=== PATIENT | male | born 1945 | race Caucasian/White ===

== ENCOUNTER → 2018-07-31 09:55 | Outpatient (CLI) | payer MEDICARE, OTHER, SELFPAY ==
--- NOTE | 2018-07-31 | DI.MRI.S_ITS ---
PROCEDURE: MR KNEE LT WO CON INDICATIONS: LEFT KNEE ARTHRITIS, PAIN TECHNIQUE: Noncontrast sagittal PD fast spin echo and T2 fast spin echo with fat saturation, sagittal 3-D FLASH with fat saturation; coronal T1 spin echo and PD fast spin echo with fat saturation, and axial PD fast spin echo with fat saturation through the knee. COMPARISON: [facility] Outside Film, CR, XR KNEE 3 VIEWS LEFT, 10/13/2017, 10:37. FINDINGS: Image quality: Excellent. Menisci: There is medial extrusion of the medial meniscus. Linear and amorphous high signal intensity traverse the posterior horn and body of the medial meniscus, demonstrating superior and inferior articular surface extension, indicating complex tearing. There is degenerative fraying of the free edge of the lateral meniscal body. Cruciate ligaments: The anterior and posterior cruciate ligaments appear intact. Medial structures: The medial collateral ligament appears intact. Visualized portions of the pes anserinus tendons appear normal. No abnormal bursal fluid. Multiple ganglion cysts at the posterior aspect of the medial compartment are present, spanning roughly 27 mm transverse by 27 mm craniocaudal by 12 mm anteroposterior. There is mild T2 signal elevation at the tibial insertion of the semimembranosus. Lateral structures: The lateral collateral ligament, long and short heads of the biceps femoris tendon appear intact. The popliteus tendon appears normal. Iliotibial band appears normal. Anterior structures: The quadriceps and patellar tendons appear intact. Patellar alignment is normal. No femoral trochlear dysplasia or ventral trochlear prominence. No edema in the infrapatellar fat pad. Bones and cartilage: There is moderate tricompartmental periarticular osteophyte formation. There is moderate ill-defined T2 signal lesion within the central and medial tibial plateau, compatible with degenerative marrow edema. Severe diffuse articular cartilage loss overlies the patellar apex and medial patellar facet. Severe diffuse articular cartilage loss overlies the weightbearing aspects of the medial femoral condyle and medial tibial plateau. Mild diffuse articular cartilage loss overlies the weightbearing aspects of the lateral femoral condyle and lateral tibial plateau. There is superimposed moderate grade articular cartilage loss overlying the posterior weightbearing aspect of the lateral femoral condyle, measuring roughly 17 mm anteroposterior. Moderate articular cartilage loss overlies the posterior weightbearing aspect of the lateral tibial plateau. Joint space: There is a small knee joint effusion. No Krishnan's cyst. Normal appearing synovial plicae are incidentally noted. IMPRESSION: 1. Medial and lateral meniscal tearing. 2. Tricompartmental osteoarthritis with associated articular cartilage loss as above. 3. Ganglion cysts at the posterior aspect of the medial compartment. 4. Small knee joint effusion. 5. Insertional tendinitis of the semimembranosus. Dictated by: Radha Humphries M.D. on 07/31/2018 at 12:10 Approved by: Radha Humphries M.D. on 07/31/2018 at 12:15
== END ==
PROVIDERS: Visit Provider Orthopaedic Surgery
DX: M17.12 Unilateral primary osteoarthritis, left knee (principal); M25.562 Pain in left knee; S83.232A Complex tear of medial meniscus, current injury, left knee, initial encounter; S83.282A Other tear of lateral meniscus, current injury, left knee, initial encounter; M67.462 Ganglion, left knee; M25.462 Effusion, left knee; M76.822 Posterior tibial tendinitis, left leg
CPT/HCPCS: 73721

== ENCOUNTER 2018-09-14 12:13 | Inpatient (IN) | payer MEDICARE, OTHER, SELFPAY ==
[2018-08-29 12:27] VITALS: BMI 30.8
[2018-09-13] VITALS (15 sets, daily range): BP systolic 83–134; BP diastolic 46–80; PULSE 55–76; RESP 12–20; TEMP 36–37.2; O2SAT 94–99; BMI 29.8
--- NOTE | 2018-09-13 06:30 | DI.RAD.S_ITS ---
PROCEDURE: XR KNEE LT 1TO2V INDICATIONS: post op. TECHNIQUE: 2 view(s) of the knee acquired. COMPARISON: None. FINDINGS: Bones: Patient is status post knee joint arthroplasty. Hardware components are in expected positions. Visualized bony structures are intact. Soft tissues: Overlying postoperative changes are noted. IMPRESSION: Status post left total knee arthroplasty. Dictated by: Anyi Kay M.D. on 09/13/2018 at 12:24 Approved by: Anyi Kay M.D. on 09/13/2018 at 12:24
[2018-09-13] MEDS: LACTATED RINGERS 1,000 ML 42 ML IV ×2 (09:00→11:10)
[2018-09-13] MEDS: ACETAMINOPHEN 325 MG TABLET 975 MG PO ×3 (09:00→21:24)
[2018-09-13] MEDS: PREGABALIN 75 MG CAPSULE PO (09:01)
[2018-09-13] MEDS: CELECOXIB 200 MG CAPSULE PO (09:01)
--- NOTE | 2018-09-13 09:16 | PM.PREOP ---
Pre-operative Note Interval Note Pre-op Check: Yes History & Physical Reviewed by Physician and Yes Exam Performed Changes: No
[2018-09-13] MEDS: CEFAZOLIN 2 GM/100 ML FROZ.PIGGY IV ×2 (10:06→18:04)
--- NOTE | 2018-09-13 10:37 | SUR.OPER ---
Supine on padded OR bed. Pillow under head, arms secured on padded armboards <90 degree abduction. Safety belt across torso. Non-operative leg secured with tape over blanket over lower leg. Operative leg secured in DeMayo/Tonio positioner. Foam padded brace at thigh of operative leg.
[2018-09-13] MEDS: BUPIVACAINE 0.5% W/ EPI (PF) VIAL 50 ML INJ (10:40)
[2018-09-13] MEDS: LIDOCAINE 1% W/EPI INJ 20 ML INJ (10:41)
[2018-09-13] MEDS: TRANEXAMIC ACID 1,000 MG VIAL 1000 MG INJ (10:42)
[2018-09-13] MEDS: BUPIVACAINE LIPOSOME 266 MG/20 ML VIAL INJ (10:42)
--- NOTE | 2018-09-13 10:50 | SUR.OPER ---
GLASSES IN LABELED CONTAINER TO PACU WITH PATIENT.
--- NOTE | 2018-09-13 11:22 | PM.OP.1 ---
Operative Date/Time/Diagnoses Date of procedure: 09/13/18 Time of procedure: :22 Pre-op diagnosis: Left knee osteoarthritis Post-op diagnosis: same Procedure & Clinicians Procedure: Left total knee arthroplasty Same procedure as scheduled: Yes Indications: The patient presents today for total knee arthroplasty after failure of conservative treatment. The nature of the procedure including the risks and benefits, alternatives, postoperative course and expected outcome were discussed and all questions answered. Consent was obtained. Operative site confirmed and marked. Surgeon: Ankit Reyna Eyeglass Lens Generator: Adiel Hernandez Anesthesia Type: General, Spinal and Local Operative Notes Findings: Severe osteoarthritis with varus alignment. Closure Type: primary Specimen(s): none sent Implants & Drains: [employer] Lauri BCS: 7 femoral component, 5 tibial component, 9 mm BCS polyethylene tray and 32 x 9 mm round patella Applied: implant(s) Estimated Blood Loss (mL): 50 Blood products transfused: none Tourniquet time (min): 22 Procedure in detail: The patient was taken to the operative suite and placed under general and spinal anesthesia. The patient was given prophylactic antibiotics prior to surgery. The patient was also given tranexamic acid, 1 g, just prior to surgery for postoperative hemostasis. The lateral knee was prepped and the joint injected with 20 mL of 1% Lidocaine with epinephrine. The knee was then prepped and draped in usual sterile fashion. The leg was exsanguinated with an Esmarch dressing and the tourniquet raised to 250 torr. A 15 cm anterior incision was made. Next a medial trivector arthrotomy was made. The extensor mechanism was marked to ensure accurate repair. Initial exposing dissection was carried out medially and laterally. The knee was then extended and the patellar thickness was measured and a cut made removing approximately 9 mm of bone with a goal of restoring normal patellar thickness. The patella was then sized and drilled. Some excess lateral bone was excised and the patellofemoral ligament released. The tourniquet was then released. The knee was then flexed and the [employer] femoral guide was placed. The anterior pins were placed and the distal rotation holes drilled. The distal cutting guide was placed and the templated distal femoral cut was made. The templating cutting block was then placed and the anterior, posterior and chamfer cuts made. The [employer] tibial guide was placed and the alignment checked along the axis of the proximal tibial with a jimenez. The proximal tibial cut was then made with an oscillating saw. All meniscus and bony debris was then removed. Flexion extension gaps were checked. No specific balancing was required other than routine exposure and removal of osteophytes. The soft tissues were then injected with a combination of 20 mL of half percent Marcaine with epinephrine and 20 mL of Exparel. The trial components were then placed. The knee went into full extension and flexion beyond 120?. There was excellent medial- lateral balance throughout motion. Patellar tracking was X. The trial components were removed and size is confirmed for the final implants. The knee was then exsanguinated with an Esmarch dressing and the tourniquet reapplied for cementing. The knee was cleansed with Pulsavac irrigation and dried. The final components were cemented in with high viscosity vacuum mixed bone cement with antibiotics. The knee was held in extension and the patellar clamp until the cement had adequately cured. The knee was then irrigated with dilute Betadine solution. The extensor mechanism was closed with 5 interrupted #1 Vicryl sutures in 90 degrees of flexion. The joint was then injected with a combination of 1 g of tranexamic acid and 20 mL of quarter percent Marcaine with epinephrine. The subcutaneous tissue was closed with 2-0 Vicryl. The skin was closed with martina and surgical adhesive. An Aquacell dressing and Julio wrap were then applied. Complications: none Condition: stable Disposition: PACU Plan for aftercare: Elizabeth.
--- NOTE | 2018-09-13 12:45 | SUR.PHASEI ---
Pt to transfer to room 211. Report called to [facility]. Pt's vital signs stable; BP 90s/50s with pt alert and oriented. Dr Brizuela aware of BP.
--- NOTE | 2018-09-13 13:05 | SUR.PHASEI ---
Pt transferred to room 211 via bed. All belongings transferred with pt. Pt's valuables remained locked in safe on acute care. Mary Anne, receiving RN at bedside to evaluate pt. Pt VSS.
[2018-09-13] MEDS: LACTATED RINGERS 1,000 ML 125 ML IV ×2 (13:27→21:25)
--- NOTE | 2018-09-13 13:31 | PC.NURSE ---
1305 Pt arrived from PACU via bed post op L TKA. Pt is awake, alert & O x3. Aquacel drsg to site/dolores wrap.ice pack applied. Pt had a spinal, slight movement to toes, applied SCDs. 1335 Pt takining PO diet. denies pain. LR @ 125/hr started. vs wnl. Pt states is hungry.
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
[2018-09-13] MEDS: GABAPENTIN 600 MG TABLET 1200 MG PO (16:50)
[2018-09-13] MEDS: SIMVASTATIN 10 MG TABLET PO (18:04)
--- NOTE | 2018-09-13 19:00 | PC.NURSE ---
A/O. Denies pain, received spinal, continuous pulse ox on. RA 95-100%. Pt reports last void at 0900. Bladder scan >999ml. Talked with pt about in/out catheter. Pt agreeable, but wants osman left in overnight. Does not want to be woken up at 0300 if unable/or no void. Osman placed. Aquacell/dolores wrap c/d/i. CMS+. IV fluids infusing w/o complication to left hand IV.
[2018-09-13] MEDS: GABAPENTIN 600 MG TABLET 1800 MG PO (21:24)
[2018-09-13] MEDS: NAPROXEN 250 MG TABLET 500 MG PO (21:24)
[2018-09-13] MEDS: METFORMIN HCL 500 MG TABLET 1000 MG PO (21:25)
[2018-09-13] MEDS: ASPIRIN EC 81 MG TABLET PO (21:25)
[2018-09-14] VITALS (7 sets, daily range): BP systolic 108–143; BP diastolic 59–76; PULSE 56–68; RESP 16–20; TEMP 36.5–36.8; O2SAT 96–100
[2018-09-14] MEDS: CEFAZOLIN 2 GM/100 ML FROZ.PIGGY IV (01:58)
[2018-09-14 06:07] LABS: Hemoglobin 11.4 g/dL (13.5-17.5)
--- NOTE | 2018-09-14 07:41 | PM.PNPO.1 ---
Subjective Date Patient Seen: 09/14/18 Time Patient Seen: 07:42 Interval history: Patient's pain is mild. Denies fever chills. No nausea vomiting. Patient able to get up and walk in the best yesterday with physical therapy. Patient does live alone. Otherwise without complaints this morning. Exam Vital Signs (past 8 hours): - 09/14/18 06:50 Temperature 97.7 F Pulse Rate 56 L Respiratory Rate 16 Blood Pressure 126/74 Pulse Oximetry 97 Oxygen Delivery Method CPAP Oxygen Flow Rate 0 Narrative Exam Narrative: Pleasant 73-year-old male resting comfortably in bed in no apparent distress. Dressing is clean, dry and intact. Sensation grossly intact to light touch distal lower extremity. Motor function is intact. Objective Labs Result Diagrams: 09/14/18 05:36 Labs: Laboratory Results - last 24 hr 09/14/18 05:36 Hgb 11.4 L Hct 33.0 L Assessment & Plan Post-op Postoperative Procedures Operation Date: 09/13/18 10:00 Actual Procedures Side Surgeon p Total Knee Arthroplasty Left Ankit Reyna MD Postop day 1 status post left total knee arthroplasty. Patient progressing as expected. Mobilize with physical therapy. Secondary to living situation patient will likely need long term facility for further rehab prior to being discharged home. Quality VTE Deep Vein Thrombosis/Pulmonary Embolism Present on Admission: No
--- NOTE | 2018-09-14 07:44 | P.PN_ITS ---
Subjective Date Patient Seen: 09/14/18 Time Patient Seen: 07:42 Interval history: Patient's pain is mild. Denies fever chills. No nausea vomiting. Patient able to get up and walk in the best yesterday with physical therapy. Patient does live alone. Otherwise without complaints this morning. Exam Vital Signs (past 8 hours): - 09/14/18 06:50 Temperature 97.7 F Pulse Rate 56 L Respiratory Rate 16 Blood Pressure 126/74 Pulse Oximetry 97 Oxygen Delivery Method CPAP Oxygen Flow Rate 0 Narrative Exam Narrative: Pleasant 73-year-old male resting comfortably in bed in no apparent distress. Dressing is clean, dry and intact. Sensation grossly intact to light touch distal lower extremity. Motor function is intact. Objective Labs Result Diagrams: 09/14/18 05:36 Labs: Laboratory Results - last 24 hr 09/14/18 05:36 Hgb 11.4 L Hct 33.0 L Assessment & Plan Post-op Postoperative Procedures Operation Date: 09/13/18 10:00 Actual Procedures Side Surgeon p Total Knee Arthroplasty Left Ankit Reyna MD Postop day 1 status post left total knee arthroplasty. Patient progressing as expected. Mobilize with physical therapy. Secondary to living situation patient will likely need retirement facility for further rehab prior to being discharged home. Quality VTE Deep Vein Thrombosis/Pulmonary Embolism Present on Admission: No
[2018-09-14] MEDS: ACETAMINOPHEN 325 MG TABLET 975 MG PO ×3 (09:07→20:34)
[2018-09-14] MEDS: NAPROXEN 250 MG TABLET 500 MG PO ×2 (09:08→20:32)
[2018-09-14] MEDS: ASPIRIN EC 81 MG TABLET PO ×2 (09:08→20:33)
[2018-09-14] MEDS: GABAPENTIN 600 MG TABLET PO (09:08)
[2018-09-14] MEDS: METFORMIN HCL 500 MG TABLET PO ×2 (11:00→17:18)
--- NOTE | 2018-09-14 14:05 | PT.IPTN ---
Current Diagnoses Sleep apnea, unspecified (09/13/18) Surgery Performed Operation Date: 09/13/18 10:00 Actual Procedures p Total Knee Arthroplasty(Left) - Ankit Reyna MD Physical Therapy Treatment Note M2 PT-IP Current Condition Start: 09/13/18 16:08 Freq: NEEDED Status: Active Protocol: Document 09/13/18 15:19 (Rec: 09/13/18 16:31 [id number]) Physical Therapy Current Condition Current Condition Evaluation Date 09/13/18 Treatment Diagnosis L TKA; difficulty walking Onset Date 09/13/18 Weight Bearing Status Weight Bearing Status Weight Bear as Tolerated M3 PT-IP Subjective Start: 09/13/18 16:08 Freq: NEEDED Status: Active Protocol: Document 09/14/18 13:58 SA (Rec: 09/14/18 14:05 SA [id number]) Subjective Physical Therapy Visit Type Type Treatment Note Visit Start Time 09:40 Visit Stop Time 10:10 Total Visit Minutes 30 Number of CONTRACT PROCESSOR Visits 1 Physical Therapy Visit Comments Patient Comments Pt agreeable to walk and do exercise. Patient Goals D/C to SNF Therapy Pain Assessment Pain When Pain Assessed During Mobility Pain Present Pain Present Denied Pain M4 PT-IP Mobility and Gait Start: 09/13/18 16:08 Freq: NEEDED Status: Active Protocol: Document 09/14/18 13:58 SA (Rec: 09/14/18 14:05 SA [id number]) PT-Bed Mobility Assessment Supine to Sit Supine to Sit Standby Assistance Sit to Supine Sit to Supine Standby Assistance Scooting Scooting to Edge of Bed Standby Assistance Scooting Up and Down in Bed Standby Assistance PT-Transfer Assessment Sit to and From Stand Sit to and from Stand Contact Guard Assistance Use of Upper Extremities Equipment Transfer Assistive Device Gait Belt Front Wheeled Walker Orthotic/Prosthetic Devices or Brace: No Transfers Transfer Destination Bed Chair Transfer Technique Stand Step Pivot Comments Mobility Comments Pt denied feeling light headed or having significant knee pain. NSG removed catheter at start of session. Gait Assessment Gait Gait Assistance Required: Contact Guard Assist Distance (Feet) 200 Able to Maintain Weight Bearing Status Yes During Gait Assistive Devices Assistive Device Gait Belt Front Wheeled Walker Orthotic/Prosthetic Devices or Brace: No Gait Deviations General Gait Pattern Decreased Stride Length Decreased Feet Clearance Factors Limiting Gait Function Factors Limiting Gait Function Decreased Activity Tolerance Decreased Strength Limited Range of Motion Pain Poor Balance Poor Safety Awareness Comments Gait Comments Pt is slightly impulsive and needs cues for pacing and safety awareness with use of FWW and ambulation. M5 PT-IP Objective Assessments Start: 09/13/18 16:08 Freq: NEEDED Status: Active Protocol: Document 09/13/18 15:19 (Rec: 09/13/18 16:31 [id number]) Orientation Orientation/Cognition Level of Alertness Alert Orientation Name Birthday Place Situation Safety Awareness Decreased Safety Awareness Comments Pt demonstrates slight impulsivity; needs to be reminded to wait for PT 1-2x. Gross Range of Motion Lower Extremity ROM Assessment Left Impaired Impairments R knee flexion 45deg Strength Lower Extremity Strength Assessment Left Impaired Hip 4 Knee 4 Ankle 5 Comments Strength Comments RLE WNL Sensation Assessment Sensation Light Touch Intact M6 PT-IP Treatment Start: 09/13/18 16:08 Freq: NEEDED Status: Active Protocol: Document 09/14/18 13:58 SA (Rec: 09/14/18 14:05 SA [id number]) Physical Therapy Treatment Exercises Exercises Ankle Pumps Gluteal Sets Quad Sets Heel Slides Seated Knee Flexion/Extension Education Education Provided Post-Op Packet Safety M7 PT-IP Assessment and Plan Start: 09/13/18 16:08 Freq: NEEDED Status: Active Protocol: Document 09/14/18 13:58 SA (Rec: 09/14/18 14:05 [id number]) PT Summary Assessment and Plan Summary Assessment Summary Pt with improved gait distance and cues for step length and even WBing. Needs safety cues especially with turning. Frequency of Treatment Frequency Of Treatment Twice a Day Recommendations To Nursing Amount of Assist Needed 1 Person Assist Discharge Recommendations PT Discharge Recommendations SNF Rehab
--- NOTE | 2018-09-14 14:17 | PC.NURSE ---
PATIENT CONTINUES TO DENY PAIN ALL SHIFT. CHIN WAS SERGO'D THIS AM. AWAITING FIRST VOID SINCE. SITTING UP IN RECLINER SINCE THIS AM. STEADY ON FEET W/ FWW SBA. PATRICIA FORBES.
--- NOTE | 2018-09-14 15:18 | PT.IPTN ---
Current Diagnoses Sleep apnea, unspecified (09/13/18) Surgery Performed Operation Date: 09/13/18 10:00 Actual Procedures p Total Knee Arthroplasty(Left) - Ankit Reyna MD Physical Therapy Treatment Note M2 PT-IP Current Condition Start: 09/13/18 16:08 Freq: NEEDED Status: Active Protocol: Document 09/13/18 15:19 (Rec: 09/13/18 16:31 [id number]) Physical Therapy Current Condition Current Condition Evaluation Date 09/13/18 Treatment Diagnosis L TKA; difficulty walking Onset Date 09/13/18 Weight Bearing Status Weight Bearing Status Weight Bear as Tolerated M3 PT-IP Subjective Start: 09/13/18 16:08 Freq: NEEDED Status: Active Protocol: Document 09/14/18 15:10 SA (Rec: 09/14/18 15:18 SA [email or web address]) Subjective Physical Therapy Visit Type Type Treatment Note Visit Start Time 14:36 Visit Stop Time 14:59 Total Visit Minutes 23 Number of ENVIRONMENTAL CONFLICT MANAGER Visits 2 Physical Therapy Visit Comments Patient Comments Pt states he may have done too many knee flexion exercises as his knee feels more swollen this AM. Pt willing to participate in PT. Patient Goals D/C to SNF and then return home [place]. Therapy Pain Assessment Pain When Pain Assessed During Mobility Pain Present Pain Present Pain Reported Location L knee Intensity 1 Scale Used Numeric (1 - 10) Pain Management Techniques Apply Cold Re-positioning Timing of Activity with Medications M4 PT-IP Mobility and Gait Start: 09/13/18 16:08 Freq: NEEDED Status: Active Protocol: Document 09/14/18 15:10 SA (Rec: 09/14/18 15:18 SA [id number]) PT-Transfer Assessment Sit to and From Stand Sit to and from Stand Standby Assistance Use of Upper Extremities Equipment Transfer Assistive Device Gait Belt Front Wheeled Walker Orthotic/Prosthetic Devices or Brace: No Transfers Transfer Destination Chair Transfer Technique Stand Step Pivot Transfer Ability Level of Assist Standby Assistance Comments Mobility Comments Clarified with patient that he is to have supervision when he ambulates in halls/room. Pt eager to walk and keep moving but slightly impulsive and recommend staff present with gait. Gait Assessment Gait Gait Assistance Required: Contact Guard Assist Distance (Feet) 225 Able to Maintain Weight Bearing Status Yes During Gait Assistive Devices Assistive Device Gait Belt Front Wheeled Walker Orthotic/Prosthetic Devices or Brace: No Gait Deviations General Gait Pattern Decreased Stride Length Decreased Feet Clearance Factors Limiting Gait Function Factors Limiting Gait Function Decreased Activity Tolerance Decreased Strength Limited Range of Motion Pain Poor Balance Poor Safety Awareness Comments Gait Comments Cues for safety with turns and decreasing WBing through UEs. Improving step length and WBing through LLE. M5 PT-IP Objective Assessments Start: 09/13/18 16:08 Freq: NEEDED Status: Active Protocol: Document 09/13/18 15:19 (Rec: 09/13/18 16:31 [id number]) Orientation Orientation/Cognition Level of Alertness Alert Orientation Name Birthday Place Situation Safety Awareness Decreased Safety Awareness Comments Pt demonstrates slight impulsivity; needs to be reminded to wait for PT 1-2x. Gross Range of Motion Lower Extremity ROM Assessment Left Impaired Impairments R knee flexion 45deg Strength Lower Extremity Strength Assessment Left Impaired Hip 4 Knee 4 Ankle 5 Comments Strength Comments RLE WNL Sensation Assessment Sensation Light Touch Intact M6 PT-IP Treatment Start: 09/13/18 16:08 Freq: NEEDED Status: Active Protocol: Document 09/14/18 15:10 SA (Rec: 09/14/18 15:18 [id number]) Physical Therapy Treatment Exercises Exercises Ankle Pumps Gluteal Sets Quad Sets Heel Slides Seated Knee Flexion/Extension Education Education Provided Post-Op Packet Safety M7 PT-IP Assessment and Plan Start: 09/13/18 16:08 Freq: NEEDED Status: Active Protocol: Document 09/14/18 15:10 SA (Rec: 09/14/18 15:18 [id number]) PT Summary Assessment and Plan Summary Assessment Summary Pt to continue with HEP but advised to use pain as guide, pt very motivated. To use call light and ask for help when he wants to ambulate. Frequency of Treatment Frequency Of Treatment Twice a Day Recommendations To Nursing Amount of Assist Needed 1 Person Assist Discharge Recommendations PT Discharge Recommendations SNF Rehab
--- NOTE | 2018-09-14 15:31 | CM.DANOTE ---
Discharge Planning/Care Management CM Discharge Assessment Start: 09/14/18 15:29 Freq: Status: Active Protocol: Document 09/14/18 15:29 (Rec: 09/14/18 15:31 [id number]) Discharge Planning Assessment Assigned Diabetic Educator FATIMAH Treadwell Advance Directives? No: Declined info Advance Directives on File No History Provided By Patient Medical Record Has Patient been admitted in last 30 No days? Prior Living Arrangements Apartment/Condo Household Members none Type of transporation used prior to Drives own vehicle admit Independent with ADL's Yes Is patient alert and oriented? Yes Patient/Family Preference Correction Facility Discharge Plan Correction Facility Additional Comment Need to submit referral to [facility] on Tuesday. If patient plan is SNF: Has PASSR been No completed? Inpatient Status as of 09/14/18 Medicare Choice List Provided Yes SNF/HH Preference 1-[facility] 2-[facility] Has Agency SNF been contacted No Whiteboard Updated in Patient Room with Yes name and ext. # of Diabetic Educator Review Status In Process Please Provide Date Initial DC 09/14/18 Assessment Was Performed Next Review Type Continued Stay Review Pre-Anesthesia Assessment Start: 08/29/18 12:27 Freq: Status: Active Protocol: Document 08/29/18 12:27 VLJ (Rec: 08/29/18 12:35 [id number]) Pre-Anesthesia Assessment Patient Also Known As Cristina (AKA) Patient Information Reviewed Via Chart Review Phone Assessment Assessment Completed With Patient Lab Results BMP/CMP CBC Other Comment A1c, lipid panel Primary Care Provider Claudia Self Medical Clearance Received No Seen Specialist in Last 12 Months Yes Specialist Seen Orthopedist Other Comment [facility] Neurologist Height 177.8 cm Weight 97.522 kg Body Mass Index (BMI) 30.8 Visual Impairment Partially Limited Visual Assist Glasses Dentition Type Teeth, Natural Present Barriers to Learning Age related Memory Visual Hx Anesthesia Reactions No Hx Family Anesthesia Reaction No Hx Malignant Hyperthermia No Hx Blood Transfusions No Comment Had a spinal; plans on it for this surgery Anesthesia Review Requested No Mortgage Protection Sales No alcohol intake former Smoking Status Never smoker Substance Use Type does not use Pain Present Pain Reported Comment Left knee Musculoskeletal Symptoms Abnormal Gait Difficulty Walking Joint Pain Joint Stiffness Joint Swelling Muscle Cramps Numbness Tingling History of Falling (Recent or History of Yes ) Patient is completely paralyzed or No completely immobile Ambulatory Aid None/bed rest/nurse assist Gait/Transferring Impaired Mental Status Oriented to own ability Comment Fell when Left knee gave out Is patient on oxygen? No Does patient have BATISTA/SOB No Hx Sleep Apnea Yes CPAP/BIPAP use prescribed and used routinely Will Bring CPAP/BIPAP DOS Yes Currently Taking a Beta Garry No Can You Climb a Flight of Stairs Without Yes SOB Hx Chest Pain No Hx SOB No Hx Syncope or Dizziness No Anti-Coagulant Therapy No Has a Laminate Floor Installer No Cardiac Testing Yes: Baseline when diagnosed w /DM 2004 in [place] Hx Pacemaker/ICD No Pacemaker Rep Required? No Cardiac Clearance Received Not Applicable Diet Type At Home Diabetic Low Carb Low Sodium dysphagia No Urinary Catheter Present No Hx Urinary Self Catheterization No Diabetes Yes HgbA1C 6.6 Date 07/04/18 Comment Checks sugars bid; runs 120 Hx Drug Resistant Organism No Presence of External or Internal Medical Yes: R TKA, L TSA, Neck fusion Devices Have you traveled outside the [facility] in the last 30 days? Marital Status Lives With other Prior Living Arrangements Apartment/Condo Number of Floors (Floors) One Floor Number of Stairs To Enter/Railing? Steep driveway to mailbox, no stairs into unit on ground level Does the Patient Have Assistance After No Surgery Comment States he has 'nobody' to help him post-op, daughter (local) out-of-town Feels Safe in Current Environment Yes Been Physically Hurt or Threatened By a No Person in Current Environment Do you have thoughts of harming yourself None or others? Are you currently considering suicide? No Do you have a plan to hurt yourself or No Plan others? Do You Have Any Spiritual Beliefs That No May Affect Your HC Choices? Do You Have Any Cultural Practices That No May Affect Your HC Choices? Comment [facility], told his diamond mounter he will be here Who Can We Speak to About Patient's Care Family & Friends Identifying Code for Release of Patient Declined Information Health Care Proxy/Next of Kin Ed Gaurav - son; Tamiko Nolasco - daughter Emergency Contact Name Same Only if it's an extreme emergency Emergency Contact Phone Number Same Advance Directives? No: Declined info Advance Directives on File No Requested Patient Bring Advanced No Directives DOS PAC Instructions Assistance for 24 hours post- op Bring CPAP/BIPAP Do not shave/clip surgical site Durable medical equipment Medications to take/avoid Nasal antibiotic No ETOH/petroleum product on skin DOS NPO Ortho class Post-op transportation Pre-op antibiotic Pre-surgical wash Sensory aids Sturdy shoes/comfortable clothes Do not bring valuables and remove jewelry
[2018-09-14] MEDS: GABAPENTIN 600 MG TABLET 1200 MG PO (17:17)
[2018-09-14] MEDS: SIMVASTATIN 10 MG TABLET PO (17:18)
[2018-09-14] MEDS: GABAPENTIN 600 MG TABLET 1800 MG PO (20:32)
[2018-09-14] MEDS: METFORMIN HCL 500 MG TABLET 1000 MG PO (20:33)
[2018-09-14] MEDS: DULOXETINE 30 MG CAPSULE 60 MG PO (20:33)
[2018-09-14] MEDS: SODIUM CHLORIDE 0.9% FLUSH 10 ML IV (20:33)
[2018-09-14] MEDS: OXYCODONE IR 5 MG TABLET PO (22:09)
[2018-09-15] MEDS: OXYCODONE IR 5 MG TABLET PO ×3 (00:27→22:17)
[2018-09-15 06:13] VITALS: BP 130/63; PULSE 69; RESP 16; TEMP 36.3; O2SAT 97
--- NOTE | 2018-09-15 06:17 | PC.NURSE ---
Noc shift Pt pain much bello controlled with POC and oxycodone. Declines pain medication @ 0600, but agreeable with meal, before PT. Ice replaced, elevated L knee in bed. PP+.
--- NOTE | 2018-09-15 07:51 | CM.DPC ---
Addendum entered by Lawanda Christianson 09/15/18 08:08: Faxed to [facility] as well Original Note: Referral faxed to [facility] per Maren
[2018-09-15] MEDS: GABAPENTIN 600 MG TABLET PO (08:41)
[2018-09-15] MEDS: NAPROXEN 250 MG TABLET 500 MG PO ×2 (08:41→20:13)
[2018-09-15] MEDS: SODIUM CHLORIDE 0.9% FLUSH 10 ML IV ×2 (08:41→20:14)
[2018-09-15] MEDS: METFORMIN HCL 500 MG TABLET PO ×2 (08:42→16:56)
[2018-09-15] MEDS: ACETAMINOPHEN 325 MG TABLET 975 MG PO ×3 (08:42→20:12)
[2018-09-15] MEDS: ASPIRIN EC 81 MG TABLET PO ×2 (08:42→20:12)
--- NOTE | 2018-09-15 08:49 | CM.DPC ---
Addendum entered by FATIMAH Galan 09/15/18 11:50: ADD: Call from [facility] admissions Alicia ([phone]) confirming that they can accept the pt at d/c and SW updated that it would be Sun at the earliest due to inpt status change after admit. Alicia confirms this would not be a problem to accept on Tuesday. FATIMAH Galan Original Note: DCP Cont: Patient who was admitted on 09/13/18 [facility] but changed to Inpt Status on 09/14/18 and requesting SNF at d/c and would not have 3 night qualifying stay until Tuesday but per Ortho PA pt has multiple medical needs and not stable for d/c yet. TASHI Webber kindly faxed [facility] and [facility] SNF's to review with [facility] pt's first preference. Per [facility] admissions Radha, reviewed clinicals and can accept pt Tuesday pending bed availability. VIMAL completed PASRR. Plan: SW to follow for likely pt d/c to [facility] on Tuesday pending bed availability and if pt makes good progress with PT/OT possible d/c home. FATIMAH Galan
--- NOTE | 2018-09-15 09:13 | PM.PNPO.1 ---
Subjective Date Patient Seen: 09/15/18 Time Patient Seen: 09:13 Interval history: Patient is postop day 2. Status post left total knee replacement by Dr. Reyna. Patient states that yesterday he overdid and there was a lot of pain in the knee but today it is feeling much better. He is ambulating well. Eating and drinking well. Denies chest pain or difficulty breathing. Plan is for the patient to be discharged to snf facility on Tuesday. The patient lives alone has multiple medical issues. Exam Vital Signs (past 8 hours): - 09/15/18 06:13 Temperature 97.4 F L Pulse Rate 69 Respiratory Rate 16 Blood Pressure 130/63 Pulse Oximetry 97 Oxygen Delivery Method Room Air Oxygen Flow Rate 0 Narrative Exam Narrative: Patient is sitting in chair. Left knee Aquacel dressing clean dry and intact. Moderate swelling in left knee and calf. Homans sign negative bilaterally. 5/5 left ankle strength. Neurovascular status intact. Objective Labs Result Diagrams: 09/14/18 05:36 Assessment & Plan Post-op Postoperative Procedures Operation Date: 09/13/18 10:00 Actual Procedures Side Surgeon p Total Knee Arthroplasty Left Ankit Reyna MD Postop day 2. Continue ambulating with physical therapy. Continue pain medication as needed. Continue home meds an CPAP at night. Plan to discharge to snf facility on Tuesday. Quality VTE Deep Vein Thrombosis/Pulmonary Embolism Present on Admission: No
--- NOTE | 2018-09-15 09:16 | P.PN_ITS ---
Subjective Date Patient Seen: 09/15/18 Time Patient Seen: 09:13 Interval history: Patient is postop day 2. Status post left total knee replacement by Dr. Reyna. Patient states that yesterday he overdid and there was a lot of pain in the knee but today it is feeling much better. He is ambulating well. Eating and drinking well. Denies chest pain or difficulty breathing. Plan is for the patient to be discharged to long-term facility on Tuesday. The patient lives alone has multiple medical issues. Exam Vital Signs (past 8 hours): - 09/15/18 06:13 Temperature 97.4 F L Pulse Rate 69 Respiratory Rate 16 Blood Pressure 130/63 Pulse Oximetry 97 Oxygen Delivery Method Room Air Oxygen Flow Rate 0 Narrative Exam Narrative: Patient is sitting in chair. Left knee Aquacel dressing clean dry and intact. Moderate swelling in left knee and calf. Homans sign negative bilaterally. 5/5 left ankle strength. Neurovascular status intact. Objective Labs Result Diagrams: 09/14/18 05:36 Assessment & Plan Post-op Postoperative Procedures Operation Date: 09/13/18 10:00 Actual Procedures Side Surgeon p Total Knee Arthroplasty Left Ankit Reyna MD Postop day 2. Continue ambulating with physical therapy. Continue pain medication as needed. Continue home meds an CPAP at night. Plan to discharge to long-term facility on Tuesday. Quality VTE Deep Vein Thrombosis/Pulmonary Embolism Present on Admission: No
[2018-09-15 10:33] VITALS: BP 145/86; PULSE 71; RESP 20; TEMP 36.3; O2SAT 98
--- NOTE | 2018-09-15 10:45 | PT.IPTN ---
Current Diagnoses Sleep apnea, unspecified (09/13/18) Surgery Performed Operation Date: 09/13/18 10:00 Actual Procedures p Total Knee Arthroplasty(Left) - Ankit Reyna MD Physical Therapy Treatment Note M2 PT-IP Current Condition Start: 09/13/18 16:08 Freq: NEEDED Status: Active Protocol: Document 09/13/18 15:19 (Rec: 09/13/18 16:31 [id number]) Physical Therapy Current Condition Current Condition Evaluation Date 09/13/18 Treatment Diagnosis L TKA; difficulty walking Onset Date 09/13/18 Weight Bearing Status Weight Bearing Status Weight Bear as Tolerated M3 PT-IP Subjective Start: 09/13/18 16:08 Freq: NEEDED Status: Active Protocol: Document 09/15/18 10:45 GGD (Rec: 09/15/18 12:22 GGD [id number]) Subjective Physical Therapy Visit Type Type Treatment Note Visit Start Time 10:10 Visit Stop Time 10:45 Total Visit Minutes 35 Number of PHOTOTYPESETTER OPERATOR Visits 3 Physical Therapy Visit Comments Patient Comments Pt states he is sore today feels he over did exericses yesterday. Therapy Pain Assessment Pain When Pain Assessed During Mobility Pain Present Pain Present Pain Reported M4 PT-IP Mobility and Gait Start: 09/13/18 16:08 Freq: NEEDED Status: Active Protocol: Document 09/15/18 10:45 GGD (Rec: 09/15/18 12:22 GGD [id number]) PT-Transfer Assessment Sit to and From Stand Sit to and from Stand Standby Assistance Use of Upper Extremities Equipment Transfer Assistive Device Gait Belt Front Wheeled Walker Orthotic/Prosthetic Devices or Brace: No Transfers Transfer Destination Chair Transfer Ability Level of Assist Standby Assistance Gait Assessment Gait Gait Assistance Required: Contact Guard Assist Distance (Feet) 200 Able to Maintain Weight Bearing Status Yes During Gait Assistive Devices Assistive Device Gait Belt Front Wheeled Walker Orthotic/Prosthetic Devices or Brace: No Gait Deviations General Gait Pattern Decreased Stride Length Decreased Feet Clearance Factors Limiting Gait Function Factors Limiting Gait Function Decreased Activity Tolerance Decreased Strength Limited Range of Motion Pain Poor Balance Poor Safety Awareness Comments Gait Comments Cues for step through gait pattern. M5 PT-IP Objective Assessments Start: 09/13/18 16:08 Freq: NEEDED Status: Active Protocol: Document 09/13/18 15:19 (Rec: 09/13/18 16:31 [id number]) Orientation Orientation/Cognition Level of Alertness Alert Orientation Name Birthday Place Situation Safety Awareness Decreased Safety Awareness Comments Pt demonstrates slight impulsivity; needs to be reminded to wait for PT 1-2x. Gross Range of Motion Lower Extremity ROM Assessment Left Impaired Impairments R knee flexion 45deg Strength Lower Extremity Strength Assessment Left Impaired Hip 4 Knee 4 Ankle 5 Comments Strength Comments RLE WNL Sensation Assessment Sensation Light Touch Intact M6 PT-IP Treatment Start: 09/13/18 16:08 Freq: NEEDED Status: Active Protocol: Document 09/15/18 10:45 GGD (Rec: 09/15/18 12:22 GGD [id number]) Physical Therapy Treatment Exercises Exercises Ankle Pumps Gluteal Sets Quad Sets Heel Slides Passive Knee Extension Hang Seated Knee Flexion/Extension Education Education Provided Post-Op Packet Safety M7 PT-IP Assessment and Plan Start: 09/13/18 16:08 Freq: NEEDED Status: Active Protocol: Document 09/15/18 10:45 GGD (Rec: 09/15/18 12:22 GGD [id number]) PT Summary Assessment and Plan Summary Assessment Summary Pt improving with mobility. He needs cues for exercise, gait pattern and safety. He lives alone would benefit from SNF rehab. Frequency of Treatment Frequency Of Treatment Twice a Day Treatment Plan Physical Therapy Treatment Plan Bed Mobility Training Transfer Training Gait Training Therapeutic Exercise Balance Retraining Post Op Education Discharge Planning Hot or Cold Pack Neuromuscular Re-ed Coordination Retraining Manual Therapy Recommendations To Nursing Amount of Assist Needed 1 Person Assist Discharge Recommendations PT Discharge Recommendations SNF Rehab
[2018-09-15 11:35] VITALS: BP 129/80; PULSE 96; RESP 16; TEMP 36.4; O2SAT 96
--- NOTE | 2018-09-15 14:55 | PT.IPTN ---
Current Diagnoses Sleep apnea, unspecified (09/13/18) Surgery Performed Operation Date: 09/13/18 10:00 Actual Procedures p Total Knee Arthroplasty(Left) - Ankit Reyna MD Physical Therapy Treatment Note M2 PT-IP Current Condition Start: 09/13/18 16:08 Freq: NEEDED Status: Active Protocol: Document 09/13/18 15:19 (Rec: 09/13/18 16:31 [id number]) Physical Therapy Current Condition Current Condition Evaluation Date 09/13/18 Treatment Diagnosis L TKA; difficulty walking Onset Date 09/13/18 Weight Bearing Status Weight Bearing Status Weight Bear as Tolerated M3 PT-IP Subjective Start: 09/13/18 16:08 Freq: NEEDED Status: Active Protocol: Document 09/15/18 14:55 GGD (Rec: 09/15/18 15:42 GGD [id number]) Subjective Physical Therapy Visit Type Type Treatment Note Visit Start Time 14:30 Visit Stop Time 14:55 Total Visit Minutes 25 Number of GEOTHERMAL INSTALLER Visits 4 Physical Therapy Visit Comments Patient Comments Pt states he is feeling better . Therapy Pain Assessment Pain When Pain Assessed During Mobility Pain Present Pain Present Pain Reported Location L knee Intensity 2 Scale Used Numeric (1 - 10) Pain Management Techniques Apply Cold Re-positioning Timing of Activity with Medications M4 PT-IP Mobility and Gait Start: 09/13/18 16:08 Freq: NEEDED Status: Active Protocol: Document 09/15/18 14:55 GGD (Rec: 09/15/18 15:42 GGD [id number]) PT-Transfer Assessment Sit to and From Stand Sit to and from Stand Standby Assistance Use of Upper Extremities Equipment Transfer Assistive Device Gait Belt Front Wheeled Walker Orthotic/Prosthetic Devices or Brace: No Transfers Transfer Destination Chair Transfer Ability Level of Assist Standby Assistance Gait Assessment Gait Gait Assistance Required: Contact Guard Assist Distance (Feet) 200 Able to Maintain Weight Bearing Status Yes During Gait Assistive Devices Assistive Device Gait Belt Front Wheeled Walker Orthotic/Prosthetic Devices or Brace: No Gait Deviations General Gait Pattern Decreased Stride Length Decreased Feet Clearance Factors Limiting Gait Function Factors Limiting Gait Function Decreased Activity Tolerance Decreased Strength Limited Range of Motion Pain Poor Balance Poor Safety Awareness M5 PT-IP Objective Assessments Start: 09/13/18 16:08 Freq: NEEDED Status: Active Protocol: Document 09/13/18 15:19 (Rec: 09/13/18 16:31 [id number]) Orientation Orientation/Cognition Level of Alertness Alert Orientation Name Birthday Place Situation Safety Awareness Decreased Safety Awareness Comments Pt demonstrates slight impulsivity; needs to be reminded to wait for PT 1-2x. Gross Range of Motion Lower Extremity ROM Assessment Left Impaired Impairments R knee flexion 45deg Strength Lower Extremity Strength Assessment Left Impaired Hip 4 Knee 4 Ankle 5 Comments Strength Comments RLE WNL Sensation Assessment Sensation Light Touch Intact M6 PT-IP Treatment Start: 09/13/18 16:08 Freq: NEEDED Status: Active Protocol: Document 09/15/18 14:55 GGD (Rec: 09/15/18 15:42 GGD [id number]) Physical Therapy Treatment Exercises Exercises Ankle Pumps Quad Sets Straight Leg Raises Passive Knee Extension Hang Seated Knee Flexion/Extension Education Education Provided Post-Op Packet Safety M7 PT-IP Assessment and Plan Start: 09/13/18 16:08 Freq: NEEDED Status: Active Protocol: Document 09/15/18 14:55 GGD (Rec: 09/15/18 15:42 GGD [id number]) PT Summary Assessment and Plan Summary Assessment Summary Pt improving with ROM and gait . He stable with gait with FWW and no LOB. He need min cues for gait pattern. Frequency of Treatment Frequency Of Treatment Twice a Day Treatment Plan Physical Therapy Treatment Plan Bed Mobility Training Transfer Training Gait Training Therapeutic Exercise Balance Retraining Post Op Education Discharge Planning Hot or Cold Pack Neuromuscular Re-ed Coordination Retraining Manual Therapy Recommendations To Nursing Amount of Assist Needed 1 Person Assist Discharge Recommendations PT Discharge Recommendations SNF Rehab
[2018-09-15 15:20] VITALS: BP 149/80; PULSE 72; RESP 18; TEMP 36.4; O2SAT 99
[2018-09-15] MEDS: SIMVASTATIN 10 MG TABLET PO (16:57)
[2018-09-15] MEDS: GABAPENTIN 600 MG TABLET 1200 MG PO (16:57)
[2018-09-15 19:35] VITALS: BP 121/74; PULSE 69; RESP 18; TEMP 36.6; O2SAT 97
[2018-09-15] MEDS: METFORMIN HCL 500 MG TABLET 1000 MG PO (20:12)
[2018-09-15] MEDS: GABAPENTIN 600 MG TABLET 1800 MG PO (20:13)
[2018-09-15] MEDS: DULOXETINE 30 MG CAPSULE 60 MG PO (20:13)
[2018-09-16] VITALS (7 sets, daily range): BP systolic 115–149; BP diastolic 66–87; PULSE 60–75; RESP 14–18; TEMP 36–36.7; O2SAT 97–98
[2018-09-16] MEDS: METFORMIN HCL 500 MG TABLET PO ×2 (08:02→17:30)
[2018-09-16] MEDS: ACETAMINOPHEN 325 MG TABLET 975 MG PO ×3 (08:03→20:36)
[2018-09-16] MEDS: GABAPENTIN 600 MG TABLET PO (08:04)
[2018-09-16] MEDS: NAPROXEN 250 MG TABLET 500 MG PO ×2 (08:04→20:37)
[2018-09-16] MEDS: ASPIRIN EC 81 MG TABLET PO ×2 (08:04→20:37)
--- NOTE | 2018-09-16 09:20 | P.PN_ITS ---
Subjective Date Patient Seen: 09/16/18 Time Patient Seen: 09:17 Interval history: POD #3 status post left total knee arthroplasty with Dr. Reyna. Patient's pain has been well controlled. He has been slow to mobilize and plans to go to [facility] on Tuesday for continued care. Exam Vital Signs (past 8 hours): - 09/16/18 06:42 09/16/18 07:30 Temperature 97.6 F 97.5 F L Pulse Rate 75 70 Respiratory Rate 17 14 Blood Pressure 149/87 H 146/80 H Pulse Oximetry 98 98 Oxygen Delivery Method Room Air Oxygen Flow Rate 0 Narrative Exam Narrative: Patient sitting at bedside chair no acute distress. He is alert and oriented x3. Calves are soft, compressible, and nontender bilaterally. Dressing on left knee is CDI. Normal postoperative swelling throughout the leg. Pulses are symmetrical. Objective Labs Result Diagrams: 09/14/18 05:36 Assessment & Plan Post-op (1) S/P total knee arthroplasty: Current Visit: Yes Status: Acute Postoperative Procedures Operation Date: 09/13/18 10:00 Actual Procedures Side Surgeon p Total Knee Arthroplasty Left Ankit Reyna MD Patient will continue mobilizing with physical therapy. Continue current pain control. Plan to discharge to [facility] tomorrow. Quality VTE Deep Vein Thrombosis/Pulmonary Embolism Present on Admission: No
--- NOTE | 2018-09-16 10:55 | PT.IPTN ---
Current Diagnoses Sleep apnea, unspecified (09/13/18) Presence of unspecified artificial knee joint (09/13/18) Surgery Performed Operation Date: 09/13/18 10:00 Actual Procedures p Total Knee Arthroplasty(Left) - Ankit Reyna MD Physical Therapy Treatment Note M2 PT-IP Current Condition Start: 09/13/18 16:08 Freq: NEEDED Status: Active Protocol: Document 09/13/18 15:19 (Rec: 09/13/18 16:31 [id number]) Physical Therapy Current Condition Current Condition Evaluation Date 09/13/18 Treatment Diagnosis L TKA; difficulty walking Onset Date 09/13/18 Weight Bearing Status Weight Bearing Status Weight Bear as Tolerated M3 PT-IP Subjective Start: 09/13/18 16:08 Freq: NEEDED Status: Active Protocol: Document 09/16/18 10:55 GGD (Rec: 09/16/18 12:22 GGD [id number]) Subjective Physical Therapy Visit Type Type Treatment Note Visit Start Time 10:20 Visit Stop Time 10:55 Total Visit Minutes 35 Number of SECURITY FLEX OFFICER Visits 5 Physical Therapy Visit Comments Patient Comments Pt states his foot is swelling . Therapy Pain Assessment Pain When Pain Assessed At Rest Pain Present Pain Present Denied Pain M4 PT-IP Mobility and Gait Start: 09/13/18 16:08 Freq: NEEDED Status: Active Protocol: Document 09/16/18 10:55 GGD (Rec: 09/16/18 12:22 GGD [id number]) PT-Bed Mobility Assessment Sit to Supine Sit to Supine Standby Assistance Scooting Scooting to Edge of Bed Standby Assistance Scooting Up and Down in Bed Standby Assistance PT-Transfer Assessment Sit to and From Stand Sit to and from Stand Standby Assistance Use of Upper Extremities Equipment Transfer Assistive Device Gait Belt Front Wheeled Walker Orthotic/Prosthetic Devices or Brace: No Transfers Transfer Destination Bed Transfer Ability Level of Assist Standby Assistance Comments Mobility Comments Cues for foot placement with sit <> standing, increase knee flexion in painfree range. Gait Assessment Gait Gait Assistance Required: Contact Guard Assist Distance (Feet) 600 Able to Maintain Weight Bearing Status Yes During Gait Assistive Devices Assistive Device Gait Belt Front Wheeled Walker Orthotic/Prosthetic Devices or Brace: No Gait Deviations General Gait Pattern Decreased Stride Length Decreased Feet Clearance Factors Limiting Gait Function Factors Limiting Gait Function Decreased Activity Tolerance Decreased Strength Limited Range of Motion Pain Poor Balance Poor Safety Awareness M5 PT-IP Objective Assessments Start: 09/13/18 16:08 Freq: NEEDED Status: Active Protocol: Document 09/13/18 15:19 (Rec: 09/13/18 16:31 [id number]) Orientation Orientation/Cognition Level of Alertness Alert Orientation Name Birthday Place Situation Safety Awareness Decreased Safety Awareness Comments Pt demonstrates slight impulsivity; needs to be reminded to wait for PT 1-2x. Gross Range of Motion Lower Extremity ROM Assessment Left Impaired Impairments R knee flexion 45deg Strength Lower Extremity Strength Assessment Left Impaired Hip 4 Knee 4 Ankle 5 Comments Strength Comments RLE WNL Sensation Assessment Sensation Light Touch Intact M6 PT-IP Treatment Start: 09/13/18 16:08 Freq: NEEDED Status: Active Protocol: Document 09/16/18 10:55 GGD (Rec: 09/16/18 12:22 GGD [id number]) Physical Therapy Treatment Exercises Exercises Ankle Pumps Quad Sets Straight Leg Raises Passive Knee Extension Hang Seated Knee Flexion/Extension Education Education Provided Safety M7 PT-IP Assessment and Plan Start: 09/13/18 16:08 Freq: NEEDED Status: Active Protocol: Document 09/16/18 10:55 GGD (Rec: 09/16/18 12:22 GGD [id number]) PT Summary Assessment and Plan Summary Assessment Summary Pt continue to improve with ROM and mobility. He needs cues for safety with transfers . He has improved with step through gait pattern with equal step length. Frequency of Treatment Frequency Of Treatment Once a Day Treatment Plan Physical Therapy Treatment Plan Bed Mobility Training Transfer Training Gait Training Therapeutic Exercise Balance Retraining Post Op Education Discharge Planning Hot or Cold Pack Neuromuscular Re-ed Coordination Retraining Manual Therapy Recommendations To Nursing Amount of Assist Needed 1 Person Assist Discharge Recommendations PT Discharge Recommendations SNF Rehab
--- NOTE | 2018-09-16 13:04 | PC.NURSE ---
0730-Bedside report done, safety checks done; assumed care of patient. 0800-assessment complete; patient A&Ox4, DEION, denies numbness/tingling; GAO, Left leg swolled +2; warm. Dressing CDI. Patient denies pain. 1200-Patient consuming 100% meals, no nausea, no emesis. Supervised activity as tolerated, Patient calls for helps appropriately. no insulin coverage need for lunch. no falls or injuries as of this note.
--- NOTE | 2018-09-16 14:03 | CM.DPC ---
DCP/SNF Call from [facility]: ready to accept patient tomorrow, Tuesday. Met with patient: remains agreeable to plan. Plan: SNF/[facility] tomorrow if medically appropriate.
[2018-09-16] MEDS: GABAPENTIN 600 MG TABLET 1200 MG PO (17:30)
[2018-09-16] MEDS: SIMVASTATIN 10 MG TABLET PO (17:30)
[2018-09-16] MEDS: METFORMIN HCL 500 MG TABLET 1000 MG PO (20:37)
[2018-09-16] MEDS: GABAPENTIN 600 MG TABLET 1800 MG PO (20:37)
[2018-09-16] MEDS: DULOXETINE 30 MG CAPSULE 60 MG PO (20:37)
[2018-09-16] MEDS: OXYCODONE IR 5 MG TABLET PO (22:30)
[2018-09-17 06:33] VITALS: BP 138/82; PULSE 65; RESP 16; TEMP 36.1; O2SAT 96
[2018-09-17] MEDS: ASPIRIN EC 81 MG TABLET PO (09:26)
[2018-09-17] MEDS: NAPROXEN 250 MG TABLET 500 MG PO (09:26)
[2018-09-17] MEDS: METFORMIN HCL 500 MG TABLET PO (09:26)
[2018-09-17] MEDS: GABAPENTIN 600 MG TABLET PO (09:26)
[2018-09-17] MEDS: ACETAMINOPHEN 325 MG TABLET 975 MG PO ×2 (09:26→14:04)
[2018-09-17] MEDS: SODIUM CHLORIDE 0.9% FLUSH 10 ML IV (09:28)
[2018-09-17 11:25] VITALS: BP 130/76; PULSE 63; RESP 16; TEMP 36.6; O2SAT 97
--- NOTE | 2018-09-17 12:28 | PT.IPTN ---
Current Diagnoses Sleep apnea, unspecified (09/13/18) Presence of unspecified artificial knee joint (09/13/18) Surgery Performed Operation Date: 09/13/18 10:00 Actual Procedures p Total Knee Arthroplasty(Left) - Ankit Reyna MD Physical Therapy Treatment Note M2 PT-IP Current Condition Start: 09/13/18 16:08 Freq: NEEDED Status: Active Protocol: Document 09/13/18 15:19 (Rec: 09/13/18 16:31 [id number]) Physical Therapy Current Condition Current Condition Evaluation Date 09/13/18 Treatment Diagnosis L TKA; difficulty walking Onset Date 09/13/18 Weight Bearing Status Weight Bearing Status Weight Bear as Tolerated M3 PT-IP Subjective Start: 09/13/18 16:08 Freq: NEEDED Status: Active Protocol: Document 09/17/18 10:10 CLB (Rec: 09/17/18 12:28 CLB [id number]) Subjective Physical Therapy Visit Type Type Treatment Note Visit Start Time 10:10 Visit Stop Time 10:37 Total Visit Minutes 27 Number of [employer] Visits 6 Therapy Pain Assessment Pain When Pain Assessed During Mobility Pain Present Pain Present Pain Reported Location L knee Intensity 2 Scale Used Numeric (1 - 10) Pain Management Techniques Apply Cold Re-positioning Timing of Activity with Medications M4 PT-IP Mobility and Gait Start: 09/13/18 16:08 Freq: NEEDED Status: Active Protocol: Document 09/17/18 10:10 CLB (Rec: 09/17/18 12:28 CLB [id number]) PT-Transfer Assessment Sit to and From Stand Sit to and from Stand Standby Assistance Use of Upper Extremities Equipment Transfer Assistive Device Gait Belt Front Wheeled Walker Orthotic/Prosthetic Devices or Brace: No Transfers Transfer Destination Chair Transfer Ability Level of Assist Standby Assistance Gait Assessment Gait Gait Assistance Required: Contact Guard Assist Distance (Feet) 600 Able to Maintain Weight Bearing Status Yes During Gait Assistive Devices Assistive Device Gait Belt Front Wheeled Walker Orthotic/Prosthetic Devices or Brace: No Gait Deviations General Gait Pattern Decreased Stride Length Decreased Feet Clearance Factors Limiting Gait Function Factors Limiting Gait Function Decreased Activity Tolerance Decreased Strength Limited Range of Motion Pain Poor Balance Poor Safety Awareness Comments Gait Comments cues for safety and slow pace in halls M5 PT-IP Objective Assessments Start: 09/13/18 16:08 Freq: NEEDED Status: Active Protocol: Document 09/13/18 15:19 (Rec: 09/13/18 16:31 [id number]) Orientation Orientation/Cognition Level of Alertness Alert Orientation Name Birthday Place Situation Safety Awareness Decreased Safety Awareness Comments Pt demonstrates slight impulsivity; needs to be reminded to wait for PT 1-2x. Gross Range of Motion Lower Extremity ROM Assessment Left Impaired Impairments R knee flexion 45deg Strength Lower Extremity Strength Assessment Left Impaired Hip 4 Knee 4 Ankle 5 Comments Strength Comments RLE WNL Sensation Assessment Sensation Light Touch Intact M6 PT-IP Treatment Start: 09/13/18 16:08 Freq: NEEDED Status: Active Protocol: Document 09/17/18 10:10 CLB (Rec: 09/17/18 12:28 CLB [id number]) Physical Therapy Treatment Exercises Exercises Ankle Pumps Quad Sets Heel Slides Straight Leg Raises Passive Knee Extension Hang Seated Knee Flexion/Extension Education Education Provided Post-Op Packet Safety M7 PT-IP Assessment and Plan Start: 09/13/18 16:08 Freq: NEEDED Status: Active Protocol: Document 09/17/18 10:10 CLB (Rec: 09/17/18 12:28 CLB [id number]) PT Summary Assessment and Plan Summary Assessment Summary Pt needs cues for safety with transfers and ambulation in halls watching obstacles. Pt uses a step through gait pattern and was able to tolerate all ther ex well. Goals Bed Mobility Goal Independent Transfer Goal Standby Assistance Front Wheeled Walker Gait Goal Standby Assistance Front Wheel Walker Gait Distance 150 Days to Meet Goals 3 Frequency of Treatment Frequency Of Treatment Once a Day Treatment Plan Physical Therapy Treatment Plan Bed Mobility Training Transfer Training Gait Training Therapeutic Exercise Balance Retraining Post Op Education Discharge Planning Hot or Cold Pack Neuromuscular Re-ed Coordination Retraining Manual Therapy Recommendations To Nursing Amount of Assist Needed 1 Person Assist Discharge Recommendations PT Discharge Recommendations SNF Rehab
--- NOTE | 2018-09-17 12:45 | CM.DPC ---
DCP/continued: Reviewed chart. Received notification from MD/Dr. Del Toro that patient medically cleared to d/c to SNF today. Met with patient explained role. Patient aware and agreeable to SNF transfer and first choice is [facility]. Placed call to Mariola at [facility] and she reports that they can accept. Orders, and PASRR faxed to [facility]. Patient scheduled to be picked up at approximately 3:00pm via cabulance. RN updated. No additional needs identified. P: [facility] today. Important message from Medicare signed by patient at approximately 12:30pm. FATIMAH Castanon
--- NOTE | 2018-10-05 10:44 | PM.DS.1 ---
History of Present Illness Date Patient Seen: 09/17/18 Chief complaint: [id number] LEFT TOTAL KNEE ARTHROPLASTY Narrative: Patient seen bedside by Dr. Del Toro s/p Aida. TKA by Dr. Reyna on 09/13/18. Patient was stable when seen with his pain controlled. He was ready for discharge to [facility] for continued care. Discharge Providers Date of admission: 09/14/18 12:13 Consults: 09/13/18 13:02 Consult to Discharge Planning Routine Comment: Consult to Physical Therapy Evaluate & Treat Comment: Physician Instructions: postop TKA protocol Consult to Respiratory Therapy Evaluate & Treat Comment: Physician Instructions: Evaluate and treat Discharge provider: Dr. Arun Del Toro MD Discharge Date: 09/17/18 Summary Discharge Diagnosis: Left knee osteoarthritis Hospital Course: Patient was admitted to the hospital s/p L. TKA by Dr. Reyna on 09/13/18. Patient tolerated the procedure well with no major complications. He was seen by PT who recommended that he be discharged to a SNF. He was stable and ready for discharge on 09/17/18. Exam Vital Signs (past 8 hours): Oxygen Delivery Method Room Air Oxygen Flow Rate 0 Narrative Exam Narrative: WDWN NAD A&Ox3. Surgical dressing intact. NVI in surgical extremity. Objective Labs Result Diagrams: 09/14/18 05:36 Discharge Plan Discharge Plan Patient Disposition: SNF Transfer to: [facility] Under care of provider: Facility Transportation: Wheelchair Consult as needed: Dental, Hearing, Mental health, Podiatry and Vision I certify the postop hospital custodial care is medically necessary on a continuing basis for any conditions for which he/ she received care during this hospitalization.: Yes The receiving facility has agreed to accept transfer and provide medical treatment.: Yes Discharge Med Rec/Prescriptions Prescriptions: New oxycodone 5 mg Tablet 5 mg PO Q4HR Qty: 60 RF: 0 docusate sodium [Colace] 100 mg capsule 100 mg PO BID Qty: 60 RF: 0 Continue metformin 500 mg Tablet 500 mg PO BID RF: 0 metformin 500 mg Tablet 1,000 mg PO BEDTIME RF: 0 gabapentin 600 mg Tablet 600 mg PO QAM RF: 0 gabapentin 600 mg Tablet 1,800 mg PO BEDTIME RF: 0 simvastatin 10 mg Tablet 10 mg PO QPM RF: 0 lisinopril 5 mg Tablet 5 mg PO DAILY RF: 0 naproxen 500 mg Tablet 500 mg PO BID RF: 0 repaglinide 1 mg Tablet 0.25 mg PO DAILY PRN (Reason: diabetes) RF: 0 duloxetine 60 mg Capsule,Delayed Release(Dr/Ec) 60 mg PO DAILY RF: 0 acetaminophen [Acetaminophen Extra Strength] 500 mg Tablet 1,000 mg PO Q6H PRN (Reason: Pain (Scale Score 1-3)) RF: 0 gabapentin 600 mg Tablet 1,200 mg PO SEEINSTR Qty: 0 RF: 0 Changed aspirin [Aspirin Low Dose] 81 mg Tablet,Delayed Release (Dr/Ec) 81 mg PO BID Qty: 0 RF: 0 Follow up/Referrals: Ankit Reyna MD [Physician] - (Follow up on 09/18 at [facility]) Discharge Health Status Multidrug resistant organism: No MDRO Provider Discharge Instructions Diet: Diet as Tolerated Liquid consistency: Normal/Thin Food texture: Regular Cold/Heat Therapy: As needed Skin/Wound/Dressing Care Report to your healthcare provider any signs of infection, such as:: chills, fever and increased pain Dressing: Leave dressing in place until 09/26 appointment [facility] Reason for rehabilitation: Post-operative therapy Rehab type: Physical therapy and Occupational therapy Visit Report/Discharge Packet Instructions: DI for Knee Replacement Discharge Data Attending Provider: Ankit Reyna Admit Date/Time: 09/14/18 12:13 Discharges patient from system. Discharge Date/Time: 09/17/18 14:45 Quality VTE Deep Vein Thrombosis/Pulmonary Embolism Present on Admission: No
--- NOTE | 2018-10-05 10:47 | P.DS_ITS ---
History of Present Illness Date Patient Seen: 09/17/18 Chief complaint: [id number] LEFT TOTAL KNEE ARTHROPLASTY Narrative: Patient seen bedside by Dr. Del Toro s/p Aida. TKA by Dr. Reyna on . Patient was stable when seen with his pain controlled. He was ready for discharge to [facility] for continued care. Discharge Providers Date of admission: 09/14/18 12:13 Consults: 09/13/18 13:02 Consult to Discharge Planning Routine Comment: Consult to Physical Therapy Evaluate & Treat Comment: Physician Instructions: postop TKA protocol Consult to Respiratory Therapy Evaluate & Treat Comment: Physician Instructions: Evaluate and treat Discharge provider: Dr. Arun Del Toro MD Discharge Date: 09/17/18 Summary Discharge Diagnosis: Left knee osteoarthritis Hospital Course: Patient was admitted to the hospital s/p L. TKA by Dr. Reyna on 09/13/18. Patient tolerated the procedure well with no major complications. He was seen by PT who recommended that he be discharged to a SNF. He was stable and ready for discharge on 09/17/18. Exam Vital Signs (past 8 hours): Oxygen Delivery Method Room Air Oxygen Flow Rate 0 Narrative Exam Narrative: WDWN NAD A&Ox3. Surgical dressing intact. NVI in surgical extremity. Objective Labs Result Diagrams: 09/14/18 05:36 Discharge Plan Discharge Plan Patient Disposition: SNF Transfer to: [facility] Under care of provider: Facility Transportation: Wheelchair Consult as needed: Dental, Hearing, Mental health, Podiatry and Vision I certify the postop hospital residential care is medically necessary on a continuing basis for any conditions for which he/ she received care during this hospitalization.: Yes The receiving facility has agreed to accept transfer and provide medical treatment.: Yes Discharge Med Rec/Prescriptions Prescriptions: New oxycodone 5 mg Tablet 5 mg PO Q4HR Qty: 60 RF: 0 docusate sodium [Colace] 100 mg capsule 100 mg PO BID Qty: 60 RF: 0 Continue metformin 500 mg Tablet 500 mg PO BID RF: 0 metformin 500 mg Tablet 1,000 mg PO BEDTIME RF: 0 gabapentin 600 mg Tablet 600 mg PO QAM RF: 0 gabapentin 600 mg Tablet 1,800 mg PO BEDTIME RF: 0 simvastatin 10 mg Tablet 10 mg PO QPM RF: 0 lisinopril 5 mg Tablet 5 mg PO DAILY RF: 0 naproxen 500 mg Tablet 500 mg PO BID RF: 0 repaglinide 1 mg Tablet 0.25 mg PO DAILY PRN (Reason: diabetes) RF: 0 duloxetine 60 mg Capsule,Delayed Release(Dr/Ec) 60 mg PO DAILY RF: 0 acetaminophen [Acetaminophen Extra Strength] 500 mg Tablet 1,000 mg PO Q6H PRN (Reason: Pain (Scale Score 1-3)) RF: 0 gabapentin 600 mg Tablet 1,200 mg PO SEEINSTR Qty: 0 RF: 0 Changed aspirin [Aspirin Low Dose] 81 mg Tablet,Delayed Release (Dr/Ec) 81 mg PO BID Qty: 0 RF: 0 Follow up/Referrals: Ankit Reyna MD [Physician] - (Follow up on 09/18 at [facility]) Discharge Health Status Multidrug resistant organism: No MDRO Provider Discharge Instructions Diet: Diet as Tolerated Liquid consistency: Normal/Thin Food texture: Regular Cold/Heat Therapy: As needed Skin/Wound/Dressing Care Report to your healthcare provider any signs of infection, such as:: chills, fever and increased pain Dressing: Leave dressing in place until 09/26 appointment [facility] Reason for rehabilitation: Post-operative therapy Rehab type: Physical therapy and Occupational therapy Visit Report/Discharge Packet Instructions: DI for Knee Replacement Discharge Data Attending Provider: Ankit Reyna Admit Date/Time: 09/14/18 12:13 Discharges patient from system. Discharge Date/Time: 09/17/18 14:45 Quality VTE Deep Vein Thrombosis/Pulmonary Embolism Present on Admission: No
== END 2018-09-17 14:45 | DRG 470 ==
LOC: AC 09-17 12:27 → OR 09-18 09:16 → AC 09-18 09:25
PROVIDERS: Admitting Provider Orthopaedic Surgery; Visit Provider Orthopaedic Surgery
PROC: 0SRD0JZ Replacement of Left Knee Joint with Synthetic Substitute, Open Approach (ICD-10-PCS; CPT 27447; principal; 2018-09-13 10:00)
DX: M25.562 Pain in left knee (principal); M17.12 Unilateral primary osteoarthritis, left knee; E11.42 Type 2 diabetes mellitus with diabetic polyneuropathy; Z79.84 Long term (current) use of oral hypoglycemic drugs; I10 Essential (primary) hypertension; G47.33 Obstructive sleep apnea (adult) (pediatric)
CPT/HCPCS: 36415; 73560; 82962; 85014; 85018; 97110; 97116; 97161; 97530; C1776; C9290; J0690; J2250; J2274; J2405; J2704

== ENCOUNTER → 2019-02-06 13:02 | Outpatient (CLI) | payer MEDICARE, OTHER, SELFPAY ==
[2018-09-13 13:38] VITALS: BMI 29.8
== END ==
PROVIDERS: Visit Provider Family Medicine
DX: E11.621 Type 2 diabetes mellitus with foot ulcer (principal); E11.42 Type 2 diabetes mellitus with diabetic polyneuropathy; L97.511 Non-pressure chronic ulcer of other part of right foot limited to breakdown of skin; L97.521 Non-pressure chronic ulcer of other part of left foot limited to breakdown of skin
CPT/HCPCS: 97597; 99203; 99213

== ENCOUNTER → 2019-02-12 14:41 | Outpatient (CLI) | payer MEDICARE, OTHER, SELFPAY ==
[2018-09-13 13:38] VITALS: BMI 29.8
== END ==
PROVIDERS: PCP Nurse Practitioner Family; Visit Provider Family Medicine
DX: E11.621 Type 2 diabetes mellitus with foot ulcer (principal); L97.511 Non-pressure chronic ulcer of other part of right foot limited to breakdown of skin; L97.521 Non-pressure chronic ulcer of other part of left foot limited to breakdown of skin; E11.42 Type 2 diabetes mellitus with diabetic polyneuropathy
CPT/HCPCS: 97597

== ENCOUNTER → 2019-02-19 14:21 | Outpatient (CLI) | payer MEDICARE, OTHER, SELFPAY ==
[2018-09-13 13:38] VITALS: BMI 29.8
== END ==
PROVIDERS: PCP Nurse Practitioner Family; Visit Provider Podiatrist Primary Podiatric Medicine
DX: E11.621 Type 2 diabetes mellitus with foot ulcer (principal); E11.40 Type 2 diabetes mellitus with diabetic neuropathy, unspecified; L97.511 Non-pressure chronic ulcer of other part of right foot limited to breakdown of skin; L97.521 Non-pressure chronic ulcer of other part of left foot limited to breakdown of skin
CPT/HCPCS: 11042; 99213

== ENCOUNTER → 2019-02-26 13:28 | Outpatient (CLI) | payer MEDICARE, OTHER, SELFPAY ==
[2018-09-13 13:38] VITALS: BMI 29.8
== END ==
PROVIDERS: PCP Nurse Practitioner Family; Visit Provider Podiatrist Primary Podiatric Medicine
DX: E11.621 Type 2 diabetes mellitus with foot ulcer (principal); E11.42 Type 2 diabetes mellitus with diabetic polyneuropathy; L97.511 Non-pressure chronic ulcer of other part of right foot limited to breakdown of skin; L97.521 Non-pressure chronic ulcer of other part of left foot limited to breakdown of skin
CPT/HCPCS: 87070; 87075; 87077; 87186; 87205; 99212

== ENCOUNTER → 2019-03-05 14:27 | Outpatient (CLI) | payer MEDICARE, OTHER, SELFPAY ==
[2018-09-13 13:38] VITALS: BMI 29.8
== END ==
PROVIDERS: PCP Nurse Practitioner Family; Visit Provider Podiatrist Primary Podiatric Medicine
DX: E11.621 Type 2 diabetes mellitus with foot ulcer (principal); E11.42 Type 2 diabetes mellitus with diabetic polyneuropathy; L97.511 Non-pressure chronic ulcer of other part of right foot limited to breakdown of skin; L97.521 Non-pressure chronic ulcer of other part of left foot limited to breakdown of skin
CPT/HCPCS: 99213; 99214

== ENCOUNTER → 2019-03-12 13:50 | Outpatient (CLI) | payer MEDICARE, OTHER, SELFPAY ==
[2018-09-13 13:38] VITALS: BMI 29.8
== END ==
PROVIDERS: PCP Nurse Practitioner Family; Visit Provider Podiatrist Primary Podiatric Medicine
DX: E11.621 Type 2 diabetes mellitus with foot ulcer (principal); E11.42 Type 2 diabetes mellitus with diabetic polyneuropathy; L97.511 Non-pressure chronic ulcer of other part of right foot limited to breakdown of skin; L97.521 Non-pressure chronic ulcer of other part of left foot limited to breakdown of skin
CPT/HCPCS: 97597

== ENCOUNTER → 2019-03-19 13:40 | Outpatient (CLI) | payer MEDICARE, OTHER, SELFPAY ==
[2018-09-13 13:38] VITALS: BMI 29.8
== END ==
PROVIDERS: PCP Nurse Practitioner Family; Visit Provider Podiatrist Primary Podiatric Medicine
DX: E11.628 Type 2 diabetes mellitus with other skin complications (principal); E11.59 Type 2 diabetes mellitus with other circulatory complications
CPT/HCPCS: 99213; 99214

== ENCOUNTER → 2019-08-09 10:17 | Outpatient (CLI) | payer MEDICARE, OTHER, SELFPAY ==
[2018-09-13 13:38] VITALS: BMI 29.8
--- NOTE | 2019-08-09 | DI.RAD.S_ITS ---
PROCEDURE: XR SHOULDER RT MIN 2V INDICATIONS: RT SHOULDER PAIN TECHNIQUE: 3 views of the shoulder were acquired. COMPARISON: None. FINDINGS: Bones: No fractures or dislocations. No suspicious bony lesions. Visualized ribs appear intact. Moderate acromioclavicular as well as glenohumeral degenerative narrowing. Soft tissues: No suspicious soft tissue calcifications. IMPRESSION: Glenohumeral and acromioclavicular degenerative narrowing. Dictated by: Esthela Hurst M.D. on 08/09/2019 at 11:33 Approved by: Esthela Hurst M.D. on 08/09/2019 at 11:34
== END ==
PROVIDERS: PCP Nurse Practitioner Family; Visit Provider Family Medicine
DX: M25.511 Pain in right shoulder (principal); M19.011 Primary osteoarthritis, right shoulder
CPT/HCPCS: 73030

== ENCOUNTER 2020-06-09 11:58 | Emergency (ER) | payer MEDICARE, OTHER, SELFPAY ==
[2018-09-13 13:38] VITALS: BMI 29.8
[2020-06-09 12:21] VITALS: BP 124/83; PULSE 69; RESP 18; TEMP 36.8; O2SAT 98; BMI 30.2
--- NOTE | 2020-06-09 12:49 | DI.CT.S_ITS ---
PROCEDURE: CT HEAD/BRAIN WO CON INDICATIONS: fall and hit head TECHNIQUE: Noncontrast 4.5 mm thick angled axial sections acquired from the foramen magnum to the vertex, with coronal and sagittal reformats. For radiation dose reduction, the following was used: automated exposure control, adjustment of mA and/or kV according to patient size. COMPARISON: None. FINDINGS: Image quality: Excellent. CSF spaces: Basal cisterns are patent. No extra-axial fluid collections. The ventricles are symmetric in size and shape. Brain: No intracranial bleeds or masses. There is cerebral volume loss for age, with resultant ventricular and sulcal prominence. There are periventricular and deep white matter chronic small vessel ischemic changes. There is intracranial internal carotid artery atherosclerosis. Skull and face: Calvarium and visualized facial bones appear intact, without suspicious lesions. Sinuses: Visualized sinuses and mastoids are clear. IMPRESSION: No acute intracranial disease process. Dictated by: Dominga Cabrera MD, PhD on 06/09/2020 at 12:53 Approved by: Dominga Cabrera MD, PhD on 06/09/2020 at 12:55
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
== END 2020-06-09 16:22 | disposition home or self-care (01) ==
PROVIDERS: Emergency Provider Nurse Practitioner Family; PCP Family Medicine
DX: S09.90XA Unspecified injury of head, initial encounter (principal); V29.9XXA Motorcycle rider (driver) (passenger) injured in unspecified traffic accident, initial encounter; Z79.82 Long term (current) use of aspirin
CPT/HCPCS: 70450; 99283; 99284

== ENCOUNTER → 2021-01-09 12:35 | Outpatient (CLI) | payer MEDICARE, OTHER, SELFPAY ==
[2018-09-13 13:38] VITALS: BMI 29.8
[2021-01-09] MEDS: COVID-19 VACC, Ad26(JANSSEN)/PF 0.5 ML IM (13:01)
== END ==
PROVIDERS: Visit Provider Internal Medicine
DX: Z23 Encounter for immunization (principal)
CPT/HCPCS: 0031A; 91303

== ENCOUNTER → 2021-06-02 12:03 | Outpatient (CLI) | payer MEDICARE, OTHER, SELFPAY ==
[2018-09-13 13:38] VITALS: BMI 29.8
--- NOTE | 2021-06-02 15:51 | DIET.PN ---
Initial Diabetes Assessment Date: 06/02/21 Time: 10 Dx: Type II Diabetes Provider: Dr. Scott Preferred Name: Jonnie Tyson Cristina presents today for initial nutrition therapy visit for T2DM. States he was diagnosed in July 2005. His late was an RN, and noticed he had been c/o ?burning feet?. Subsequently, she checked his BG and discovered it was >300 mg/dL 3 hours after dinner. Saw audiovisual production specialist, who wanted to start him on insulin at that time. He did not want this. Went ?cold turkey? on his diet, adjusting his diet. H/o glipizide per his report. Currently taking Metformin 1000 mg at dinner and 1000 mg HS. Within goal for HgA1c last lab, 6.8%. Elevated TG and cholesterol hx since he was 42 y/o, no hx pancreatitis. New CKD dx per notes. High saturated fat intake. Some meals high in carb as well, but he is doing well at eating veggies and protein. Denies frequent urination, Endorses some neuropathy in feet (mostly in toes) getting laser tx. Soaks his feet in Epsom salt Diet Recall: 8a: oats, craisins, blueberries, walnuts, milk, V8, 4 eggs with tomatoes; [id number] pc forbes 1230p: 8 prunes 5p: Mon: pork chops and veg; Tues: sirloin and veg; Wed: frozen lasagna with chx; Thurs: ribs, veg; Fri: lasagna with chx; Sat: salmon with veg; Sun: lasagna with chx Anthropometrics: Ht: 71 Wt: 212.4# Physical Activity: Crossfit 3 x per week. Interested in walking twice per week. Self-Monitoring Blood Glucose: 2x per day. No log book or meter today. Checks FBG and 2-2.5 hours after dinner 137 mg/dL this morning 143 mg/dL last night Usually Bg are a little lower per his report Labs: New labs taken. Sees PCP this Tuesday. 12/03/20 HgA1c: 6.8% Microalbumin: 13 Cr: 60 Cholesterol: 232 H HDL: 32 L T H DM Medications: Metformin 1000mg BID; states he has a small pill he takes before meals if eating larger carb quantities, but he is unsure of the name. No record of this med available. Denies hypoglycemia. Nutrition Rx: Carbohydrates: Daily: 130-200g Meal: 45-60g Snack: 15g Nutrition Diagnosis: - Excessive carbohydrate intake r/t nutrition knowledge deficit aeb diet recall >60g carbs - Excessive sodium intake r/t stage of change and nutrition knowledge deficit aeb diet recall with lasagna and forbes - Excessive saturated fat intake r/t stage of change and nutrition knowledge deficit aeb diet recall and elevated cholesterol labs Intervention: Provided evidence based medical nutrition therapy for type II diabetes. This participant was very receptive. Provided appropriate educational handouts. Discussed the following topics: - Completed intake assessment. Discussed barriers to care. - Reviewed HgA1c and its correlation to blood glucose numbers. - Discussed importance of self-monitoring, how often, and when to check. Suggested checking at different times to evaluate meals - Created SMART goals for pt self-care and success. - Foot care and avoiding soaking. - Saturated fat intake and impact on cholesterol -Plate Method, meal timing, carb counting, pairing macronutrients and spreading out CHO for better BG mgmnt - Impact of macronutrients on BG - Rec servings for CHO at meals and snacks - Brainstormed appropriate meal plan based on her food preferences - Role of physical activity and following provider guidelines for safety Goals: - Walk twice per week - Check BG 1-2 hours after breakfast twice per week - Bring meter next visit - Bring other DM med next visit - Pair protein with prunes as discussed Follow-up: ARGELIA JO follow-up in two week Total visits: 60 min MNEnedina Nielsen RDN, DEYSI Certified Diabetes Care and Employment Assistant
== END ==
PROVIDERS: Referring Provider Family Medicine; Visit Provider Family Medicine
DX: E11.40 Type 2 diabetes mellitus with diabetic neuropathy, unspecified (principal); Z79.84 Long term (current) use of oral hypoglycemic drugs; Z71.3 Dietary counseling and surveillance
CPT/HCPCS: 97802

== ENCOUNTER → 2021-06-16 10:00 | Outpatient (CLI) | payer MEDICARE, OTHER, SELFPAY ==
[2018-09-13 13:38] VITALS: BMI 29.8
--- NOTE | 2021-06-16 17:42 | DIET.PN ---
Diabetes Follow-up Assessment Date: 06/16/21 Time: 10:05-11:15a Dx: Type II Diabetes Provider: Dr. Scott Preferred Name: Jonnie Cristina presents today for diabetes education. Plans to have PCP follow-up in 6 months for labs. Today he brought in the medication he sometimes takes before a meal, Repaglinide (Prandin) x 1 mg. States he takes this prior to high carb meals. Not currently on med list. No longer soaks his feet in Epsom salt, as discussed. States he eats butter in moderation, but chooses this over vegetable spreads (margarine). Open to reducing sodium and saturated fat intake by replacing lasagna nights with another option. Seems less inclined to reduce red meat, cheese or fat content in milk intake. Anthropometrics: Ht: 71 Last Wt: 212.4# Physical Activity: Crossfit 3 x per week. Interested in walking twice per week but did not implement this. Self-Monitoring Blood Glucose: 2x per day. Forgot to change BG checks to after breakfast Checks FBG and 2-2.5 hours after dinner. Brought meter. All fastings above target. 1/6 elevated pc dinner, likely r/t CHO intake. Fastings: 160, 140, 155, 148, 133, 94, 149 Post dinner: 160, 145, 186 (lasagna night, prunes prior), 132, 114, 137 Labs: 12/03/20 HgA1c: 6.8% Microalbumin: 13 Cr: 60 Cholesterol: 232 H HDL: 32 L T H Diabetes Medications: Metformin 1000mg BID; Repaglinide (Prandin) prn. Denies hypoglycemia. Intervention:This participant was very receptive. Provided appropriate educational handouts. Discussed the following topics: - Recent BG and correlation to foods and hormones (tamia phenomenon) - Created SMART goals for pt self-care and success. - Heart health nutrition: fats, fiber, sodium, fiber (label reading) - Kidney health and diabetes - Ideas for lasagna night (lower sodium frozen meals or prepared chx and veg dinner) - Physical activity Goals: - Walk twice per week- in progress - Check BG 1-2 hours after breakfast twice per week- not met - Bring meter next visit- met - Bring other DM med next visit- met - Pair protein with prunes as discussed- met - Try lean cuisine or chicken/veg meal on agna night- new - Try higher fiber crackers and PB as HS snack- new Follow-up: ARGELIA JO follow-up in 1 month Fina Nielsen RDN, CDCES Certified Diabetes Care and Hematology Technologist
== END ==
PROVIDERS: PCP Family Medicine; Referring Provider Family Medicine; Visit Provider Family Medicine
DX: E11.9 Type 2 diabetes mellitus without complications (principal); Z79.84 Long term (current) use of oral hypoglycemic drugs; Z71.3 Dietary counseling and surveillance
CPT/HCPCS: G0108

== ENCOUNTER → 2021-07-21 13:29 | Outpatient (CLI) | payer MEDICARE, OTHER, SELFPAY ==
[2018-09-13 13:38] VITALS: BMI 29.8
--- NOTE | 2021-07-21 14:39 | DIAB.FU ---
Follow-up Diabetes Education Assessment Date: 07/21/21 Time: 135-235p Dx: Type II Diabetes Provider: Dr. Scott Preferred Name: Jonnie Cristina presents today for diabetes education follow-up. Reports h/o foot ulcer and wound care. States he has paid high costs for diabetes specialized shoes. He is unaware that Medicare will sometimes cover part of these costs. Endorses walking barefoot inside on wood floors. Reports being overdue for customer trainer annual visit, though does endorse seeing his chiropractor for laser tx for LE neuropathy. Has been working on adding protein to each meal and snack. Tried lower sodium frozen meals, but claims these raised his BG more than the frozen lasagna and chicken. Two elevations in postprandial readings of 190 and 193 mg/dL in his meter since last visit. States he is using measuring cups to measure oatmeal, which has resulted in a decrease of portion from 2 c to 1c. Wants to stick with higher sodium lasagna meals. Anthropometrics: Ht: 71 Previous Wt: 212.4# no recent weight Physical Activity: [employer] 3 x per week. Interested in walking twice per week but did not implement this. Attributes avoiding walking to laziness and watching TV instead. Has asked [employer] coaches to increase intensity of his workouts, which he finds satisfying. Self-Monitoring Blood Glucose: 2x per day. Checks FBG and 2-2.5 hours after dinner. Brought meter. Most fastings continue above target, though 2/7 are in range. All after meal readings are in range and seem lower than last visit. 7 day meter avg changed from 143 to 137 mg/dL this visit. This visit: Fastings: 150, 166, 77 (denies symptoms), 151, 178, 111, 156 Post dinner: 131, 117, 101, 129, 151, 165 Last visit: Fastings: 160, 140, 155, 148, 133, 94, 149 Post dinner: 160, 145, 186 (lasagna night, prunes prior), 132, 114, 137 Labs: 12/03/20 HgA1c: 6.8% Microalbumin: 13 Cr: 60 Cholesterol: 232 H HDL: 32 L T H Diabetes Medications: Metformin 1000mg BID; Repaglinide (Prandin) prn. Denies hypoglycemia. Intervention:This participant was very receptive. Provided appropriate educational handouts. Discussed the following topics: - Recent BG and impact of phys activity and nutrition - Rationale for avoiding barefoot - Medicare guidelines for covering shoes - Importance of customer trainer visit - pairing macronutrients and avoiding sodium - discussed possible other options for dinner than lasagna (will cover more next visit) - Motivation for walking on non-gym days Goals: - Try lean cuisine or chicken/veg meal on night- met - Try higher fiber crackers and PB as HS snack- not met - Walk on Tuesdays to increase days of activity- new - Call customer trainer - new Follow-up: ARGELIA JO follow-up in 5 weeks Fina Nielsen RDN, DEYSI Certified Diabetes Care and Application Development Project Manager
== END ==
PROVIDERS: PCP Family Medicine; Referring Provider Family Medicine; Visit Provider Family Medicine
DX: E11.9 Type 2 diabetes mellitus without complications (principal); Z79.84 Long term (current) use of oral hypoglycemic drugs; Z71.3 Dietary counseling and surveillance
CPT/HCPCS: G0108

== ENCOUNTER → 2021-08-25 11:02 | Outpatient (CLI) | payer MEDICARE, OTHER, SELFPAY ==
[2018-09-13 13:38] VITALS: BMI 29.8
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
== END ==
PROVIDERS: PCP Family Medicine; Referring Provider Family Medicine; Visit Provider Family Medicine
DX: E11.9 Type 2 diabetes mellitus without complications (principal); Z71.3 Dietary counseling and surveillance; Z79.84 Long term (current) use of oral hypoglycemic drugs
CPT/HCPCS: 97803

== ENCOUNTER → 2021-10-13 11:01 | Outpatient (CLI) | payer MEDICARE, OTHER, SELFPAY ==
[2018-09-13 13:38] VITALS: BMI 29.8
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
== END ==
PROVIDERS: PCP Family Medicine; Referring Provider Family Medicine; Visit Provider Family Medicine
DX: E11.9 Type 2 diabetes mellitus without complications (principal)
CPT/HCPCS: 97803

== ENCOUNTER → 2021-11-24 10:54 | Outpatient (CLI) | payer MEDICARE, OTHER, SELFPAY ==
[2018-09-13 13:38] VITALS: BMI 29.8
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
== END ==
PROVIDERS: PCP Family Medicine; Referring Provider Family Medicine; Visit Provider Family Medicine
DX: E11.649 Type 2 diabetes mellitus with hypoglycemia without coma (principal); Z79.84 Long term (current) use of oral hypoglycemic drugs; Z71.3 Dietary counseling and surveillance
CPT/HCPCS: G0108

== ENCOUNTER → 2022-02-23 10:59 | Outpatient (CLI) | payer MEDICARE, OTHER, SELFPAY ==
[2018-09-13 13:38] VITALS: BMI 29.8
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
== END ==
PROVIDERS: PCP Family Medicine; Referring Provider Family Medicine; Visit Provider Family Medicine
DX: E11.9 Type 2 diabetes mellitus without complications (principal); Z79.84 Long term (current) use of oral hypoglycemic drugs; Z71.3 Dietary counseling and surveillance
CPT/HCPCS: 97803

== ENCOUNTER → 2022-03-27 11:19 | Outpatient (CLI) | payer MEDICARE, OTHER, SELFPAY ==
[2018-09-13 13:38] VITALS: BMI 29.8
--- NOTE | 2022-03-27 11:25 | DI.RAD.S_ITS ---
PROCEDURE: XR HIP W PEL IF DONE STEPHAN MIN 4V INDICATIONS: HIP PAIN TECHNIQUE: AP pelvis with lateral view(s) of the bilateral hip(s). COMPARISON: None. FINDINGS: Bones: No fractures or dislocations. Pelvic ring appears intact. No suspicious bony lesions. Moderate to severe bilateral degenerative hip joint space narrowing. No erosions. Soft tissues: The visualized bowel gas pattern is normal. No suspicious soft tissue calcifications. 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 Dictated by: Esthela Hurst M.D. on 03/27/2022 at 11:50 Approved by: Esthela Hurst M.D. on 03/27/2022 at 11:51
== END ==
PROVIDERS: PCP Family Medicine; Referring Provider Family Medicine; Visit Provider Family Medicine
DX: M25.559 Pain in unspecified hip (principal)
CPT/HCPCS: 73522

== ENCOUNTER → 2022-05-05 10:35 | Outpatient (CLI) | payer MEDICARE, OTHER, SELFPAY ==
[2018-09-13 13:38] VITALS: BMI 29.8
--- NOTE | 2022-05-05 10:37 | DI.NM.S_ITS ---
PROCEDURE: NM BONE SCAN WHOLE BODY RADIOPHARMACEUTICAL: 20.7 mCi Tc-99m MDP IV. INDICATIONS: PELVIC PAIN TECHNIQUE: Delayed whole-body scintigrams were obtained approximately 3-4 hours after intravenous injection of radiotracer. Anterior and posterior views were acquired from vertex to feet. Additional left and right oblique views of the pelvis and hips were obtained. COMPARISON: [facility], [place], XR HIP W PEL IF DONE STEPHAN 3TO4V, 03/27/2022, 11:16. [facility], CR, XR SHOULDER RT MIN 2V, 08/09/2019, 11:22. [facility], [place], XR BONE LENGTH SCANOGRAM, 08/03/2018, 9:30. [facility], [place], XR KNEE ARTHRITIC SERIES LT, 10/16/2018, 13:50. [facility], [place], XR PELVIS WITH BILATERAL LATERAL HIPS, 04/07/2022, 9:54. FINDINGS: There is increased uptake in hip joints bilaterally, correlating with degenerative/arthritic changes seen on the comparison radiograph. Intense uptake is seen in the right humeral head area. Comparison x-ray showed severe osteoarthritis of the right glenohumeral joint. Less intense uptake is also seen in the left shoulder compatible with osteoarthritis. Low-level increased uptake in the left paranasal area is likely related to paranasal sinus disease. No lesions are identified in skull, sternum, clavicles, scapulae, ribs, bony pelvis, and visualized shafts of the long bones. There is low level increased uptake in cervical, thoracic and lumbar spine with distribution indistinguishable from degenerative disc and facet disease; early metastasis to spine could be obscured by degenerative changes. There are foci of increased periarticular activity involving shoulders, wrists, and left foot, compatible with degenerative/arthritic changes. Note is made of bilateral total knee arthroplasties. IMPRESSION: 1. Degenerative/arthritic changes in multiple peripheral joints. 2. Bilateral total knee arthroplasties. Dictated by: Royal Jaramillo M.D. on 05/05/2022 at 17:33 Approved by: Royal Jaramillo M.D. on 05/06/2022 at 9:59
== END ==
PROVIDERS: PCP Family Medicine; Referring Provider Orthopaedic Surgery; Visit Provider Orthopaedic Surgery
DX: R10.2 Pelvic and perineal pain (principal); Z96.653 Presence of artificial knee joint, bilateral
CPT/HCPCS: 78306; A9503

== ENCOUNTER → 2022-07-02 08:03 | Outpatient (CLI) | payer MEDICARE, OTHER, SELFPAY ==
[2018-09-13 13:38] VITALS: BMI 29.8
--- NOTE | 2022-07-02 08:04 | DI.MRI.S_ITS ---
PROCEDURE: MR PELVIS WO CON INDICATIONS: BURSITIS OF HIP/EVAL FOR TENDINOPATHY OR FRACTURES TECHNIQUE: Noncontrast coronal and axial T1 spin echo and STIR through the bony pelvis. COMPARISON: [facility], [place], XR PELVIS WITH BILATERAL LATERAL HIPS, 04/07/2022, 9:54. FINDINGS: Image quality: Excellent. Bones: No marrow edema. There is at least moderate lower lumbar spondylotic changes. No fracture or dislocation. The sacroiliac joints are intact, without marrow edema. No avascular necrosis of the femoral heads. The sacrum is intact. Tendons: There might be trace gluteus minimus tendinopathy on both sides. The gluteus medius and minimus tendons are otherwise intact. Suspect a small partial tear at the left hamstrings origin. This OS attachments are intact. The attachment of the rectus femoral eye muscles are intact. The sartorius attachment are intact. No edema of the quadratus femoris. No edema of the pubic symphysis. Joints: [id number] bilateral hip arthritic changes characterized by osteophytes and cartilage thinning/heterogeneity the labrum is not well evaluated on this nondedicated study. Soft tissues: Normal visualized muscle bulk. No aneurysm in the field of view. Normal appearance of the bowel and partially seen genitourinary structures. Bladder is underdistended which limits evaluation. The bladder wall is slightly thick. IMPRESSION: Moderate bilateral hip arthrosis without high-grade findings, such as [id number] contact or marrow edema. Mild bilateral gluteus minimus insertional tendinopathy and left hamstrings origin partial tear. No high-grade injury to pelvic tendons. No evidence of bursitis in the iliopsoas or trochanteric regions. No significant joint effusion. Bladder wall is slightly thick, not well evaluated and likely accentuated by under distention. Dictated by: Mayank Kirk M.D. on 07/02/2022 at 9:36 Approved by: Mayank Kirk M.D. on 07/02/2022 at 9:44
== END ==
PROVIDERS: PCP Family Medicine; Referring Provider Physical Medicine & Rehabilitation; Visit Provider Physical Medicine & Rehabilitation
DX: M70.70 Other bursitis of hip, unspecified hip (principal); S86.812A Strain of other muscle(s) and tendon(s) at lower leg level, left leg, initial encounter; M16.0 Bilateral primary osteoarthritis of hip
CPT/HCPCS: 72195

== ENCOUNTER → 2022-07-23 13:01 | Outpatient (CLI) | payer MEDICARE, OTHER, SELFPAY ==
[2018-09-13 13:38] VITALS: BMI 29.8
--- NOTE | 2022-07-23 13:02 | DI.MRI.S_ITS ---
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 In cases with scoliosis, additional coronal T2 fast spin echo may be performed. COMPARISON: [facility], , MR PELVIS WO CON, 07/02/2022, 8:32. [facility], [place], NM BONE SCAN WHOLE BODY, 05/05/2022, 13:47. FINDINGS: Image quality: This examination is limited by involuntary motion artifact. Alignment and Curvature: There is minimal retrolisthesis seen at L2-L3. Bone Marrow: Marrow is of normal overall signal. No acute vertebral body compression fractures. Spinal Cord: Conus medullaris terminates at the L1-L2 level. Visualized cord demonstrates normal signal and size. Paraspinous Soft Tissues: No paravertebral masses. Age-appropriate lower thoracic spine degenerative changes are seen. T12-L1: Normal appearance. L1-L2: The disc height is well-preserved. Loss of disc signal is seen at this level. Minimal to mild bilateral neural foraminal narrowing can be seen. No significant central canal narrowing is seen. L2-L3: The disc height is well-preserved. Loss of disc signal is seen at this level. Mild generalized disc bulge is seen. There is a superimposed central disc protrusion. There is moderate left-sided and moderate to severe right-sided neural foraminal narrowing. Moderate central canal narrowing is seen. L3-L4: Moderate loss of disc height and disc signal can be seen. At least moderate disc bulge is seen, which is eccentric the left. Moderate facet joint hypertrophy is seen. Fluid is seen within the facet joints themselves. Associated hypertrophy of the ligamentum flavum can be seen. There is moderate to severe bilateral neural foraminal narrowing seen, with an associated a degree of compression seen upon the exiting nerve roots. Moderate to severe central canal narrowing is also seen. L4-L5: Moderate loss of disc height is seen. Loss of disc signal is seen. Moderate disc bulge is seen, which is eccentric to the right. At least moderate facet hypertrophy is seen. Fluid is seen within the facet joints themselves. Associated hypertrophy of the ligamentum flavum can be seen. There is moderate to severe right-sided and at least moderate left-sided neural foraminal narrowing. There is a degree of compression seen upon the exiting nerve roots. Moderate to severe central canal narrowing is seen, as on series 5, image 25. L5-S1: Moderate to severe loss of disc height and disc signal can be seen. At least moderate disc bulge is seen, which is eccentric to the left. At least moderate facet hypertrophy is seen, left worse than right. There is moderate to severe bilateral neural foraminal narrowing seen, with an associated a degree of compression seen upon the exiting nerve roots. Moderate central canal narrowing is seen. S1-S2: A transitional, rudimentary disc is seen at this level. No significant neural foraminal or central canal narrowing can be seen. IMPRESSION: Multiple levels of lower lumbar spine degenerative change can be seen. Several sites of significant neural foraminal narrowing can be seen, with associated exiting nerve root compression. There is moderate to severe central canal narrowing seen at L3-L4 and at L4-L5. Dictated by: Yusuf Shukla M.D. on 07/23/2022 at 15:54 Approved by: Yusuf Shukla M.D. on 07/23/2022 at 15:58
== END ==
PROVIDERS: PCP Family Medicine; Referring Provider Physical Medicine & Rehabilitation; Visit Provider Physical Medicine & Rehabilitation
DX: M47.816 Spondylosis without myelopathy or radiculopathy, lumbar region (principal); M48.061 Spinal stenosis, lumbar region without neurogenic claudication
CPT/HCPCS: 72148

== ENCOUNTER → 2022-09-16 14:02 | Outpatient (CLI) | payer MEDICARE, OTHER, SELFPAY ==
[2018-09-13 13:38] VITALS: BMI 29.8
--- NOTE | 2022-09-16 14:03 | DI.RAD.S_ITS ---
PROCEDURE: XR LUMBAR SPINE MIN 4V INDICATIONS: BACK PAIN TECHNIQUE: 5 views of the lumbar spine were acquired, including bilateral oblique views. COMPARISON: [facility], MR, MR LUMBAR SPINE WO CON, 07/23/2022, 13:46. [facility], RF, LUMBAR SPINE INTERIAMINAR, 08/24/2022, 13:08. FINDINGS: Bones: 5 nonrib-bearing vertebrae are present. There is 4 mm anterolisthesis of L4 on L5 and 6 mm retrolisthesis of L2 on L3. 5 mm anterolisthesis of L5 on S1 is also seen. Degenerative endplate changes and bilateral facet arthrosis throughout lumbar spine is seen most notably at L4-5 and L5-S1 levels.. No vertebral body compression fractures. No suspicious bony lesions. Soft tissues: Overlying bowel gas pattern is normal. No suspicious soft tissue calcifications. Oblique images: No pars defects. IMPRESSION: Degenerative disc disease throughout lumbar spine as above. Grade 1 spondylolisthesis are noted at L2-3, L4-5 and L5-S1 levels. No acute compression fracture. No gross pars defects. Dictated by: Colby Smith M.D. on 09/16/2022 at 14:47 Approved by: Colby Smith M.D. on 09/16/2022 at 14:49
== END ==
PROVIDERS: PCP Family Medicine; Referring Provider Physical Medicine & Rehabilitation; Visit Provider Physical Medicine & Rehabilitation
DX: M51.36 Other intervertebral disc degeneration, lumbar region (principal); M51.37 Other intervertebral disc degeneration, lumbosacral region; M43.16 Spondylolisthesis, lumbar region; M43.17 Spondylolisthesis, lumbosacral region; M54.9 Dorsalgia, unspecified
CPT/HCPCS: 72110; 99214

== ENCOUNTER 2022-09-28 07:04 | Outpatient (CLI) | payer MEDICARE, OTHER, SELFPAY ==
[2018-09-13 13:38] VITALS: BMI 29.8
[2022-09-28] VITALS (8 sets, daily range): BP systolic 122–150; BP diastolic 69–89; PULSE 57–69; RESP 12–20; TEMP 36.4; O2SAT 97–100
--- NOTE | 2022-09-28 07:06 | DI.RAD.S_ITS ---
PROCEDURE: PAIN L/S FACET INJ/BLK 1ST STEPHAN COMPARISON: [facility], CR, XR LUMBAR SPINE MIN 4V, 09/16/2022, 14:02. INDICATIONS: SPONDYLOSIS FINDINGS: Fluoroscopic spot filming was performed to verify placement of spinal needles on both sides at the L4, L5, and S1 levels, as labeled on the films. Appropriate location of the needle tips was confirmed by injection of iodinated contrast. IMPRESSION: Intraprocedural examination demonstrating appropriate positions of the needles. Dictated by: Yusuf Shukla M.D. on 09/28/2022 at 8:51 Approved by: Yusuf Shukla M.D. on 09/28/2022 at 8:52
[2022-09-28] MEDS: IOPAMIDOL 15 ML VIAL 3 ML INJ (08:50)
[2022-09-28] MEDS: BUPIVACAINE 0.5% (PF) VIAL 5 ML INJ (08:50)
[2022-09-28] MEDS: LIDOCAINE 1% (PF) 5 ML INJ (08:51)
[2022-09-28] MEDS: BETAMETHASONE 30 MG/5 ML MDV 12 MG INJ (08:51)
--- NOTE | 2022-09-28 09:06 | P.PCN_ITS ---
Date/Time/Diagnoses Date of procedure: 09/28/22 Time of procedure: 09:06 Pre-procedure diagnosis: 1. FACET ARTHROPATHY 2. AXIAL LBP 3. MULTILEVEL DDD Post-procedure diagnosis: same Procedure Notes Procedure: 1. FLUOROSCOPICALLY GUIDED CONTRAST CONTROLLED FACET JOINT INJECTIONS BILATERAL L3/4, L4/5, L5/S1 Indications: Tyson is referred by Dr. Scott for treatment of Axial LBP Physician: Jerrell Diamond Total Fluoroscopy time (seconds): 16 Total sedation minutes: 0 Complications: none Procedure in detail & Post-procedure care: FINDINGS Multilevel Facet Arthropathy with Clinically significant axial LBP DESCRIPTION OF PROCEDURE Fluoroscopically guided, contrast-controlled bilateral L3/4, L4/5, L5/S1 facet joint injections. Following review of allergy and review of potential side effects and complications, including, but not necessarily limited to, infection, allergic reaction, local tissue breakdown, stroke, temporary or permanent nerve injury, paralysis, and possible , the patient indicated that the patient understood and agreed to proceed. An informed consent document was signed by the patient, witnessed by a nurse, and placed in the patient's chart. Additionally, other treatment options including medications, modalities, and physical therapy were reviewed with the patient. After review of previous anaesthesic history and IV conscious sedation the patient was deemed safe to proceed with today?s procedure with IV conscious sedation as ASA class II designation. Safety time-out was performed to confirm patient ID, procedure to be performed and site of procedure. IV sedation was deemed unnecessary and thus not administered by the RN after DO order, titrated to patient comfort during the course of the procedure while the patient remained responsive to all verbal commands In the prone position, following sterile prep and drape of the lumbar region, the posterior aspect of the L3/4, L4/5, L5/S1 facet joints were identified fluoroscopically. The skin was anesthetized via a 25-gauge 1.5inch needle with 1% lidocaine solution into the corresponding facet joints. At this point, a 22- gauge 3.5-inch spinal needle was atraumatically introduced and advanced under fluoroscopic guidance into the corresponding facet joints. Following negative aspiration, injections of approximately 0.2cc of Isovue 200 confirmed interarticular placement without vascular uptake. The identical procedure was then performed at the L3/4, L4/5, L5/S1 facet joints on the left. Radiological data, including multiple fluoroscopic views of the lumbosacral spine, reveal a spinal needle at the L3/4, L4/5, L5/S1 facet joints bilaterally. Subsequent views show flow of contrast material both superiorly and inferiorly within the joint space without vascular or intrathecal uptake. At this point, a total of 0.5cc including a mixture of 0.25cc Marcaine and 0.25cc betamethasone was injected without complication into each of the corresponding facet joints. The patient tolerated the procedure well without signs or symptoms of complications prior to transfer to the recovery area continued monitoring without incident. The patient was then transferred to the recovery area where they were observed for an appropriate period of time after the injection. The patient reported a VAS score of 7 prior to the procedure and a post- procedure VAS of 0. POST OP INSTRUCTIONS The patient was provided a Pain Log to continue to record their response to the target-specific procedure prior to follow-up visit with their referring physician. Additionally, specific post-injection care instructions and a contact number to our office were provided if concerns arise regarding possible complications associated with the procedure are suspected.
--- NOTE | 2022-09-28 09:23 | PC.NURSE ---
Patient reports that his allergy to Iodine contrast was many years ago from the old contrast for CT scans and the shellfish he ate 36 raw oysters in less then 3 hours and the next day has adverse reactions. Patient educated and aware that he did have a small dose of contrast in his injections today. He will watch for any s/sx of adverse reactions. Denies any SOB and swelling of throat. He is drinking coffee without difficulty.
== END 2022-09-28 09:20 | disposition home or self-care (01) ==
LOC: RAD 07:05
PROVIDERS: PCP Family Medicine; Referring Provider Physical Medicine & Rehabilitation; Visit Provider Physical Medicine & Rehabilitation
DX: M47.816 Spondylosis without myelopathy or radiculopathy, lumbar region (principal); M47.817 Spondylosis without myelopathy or radiculopathy, lumbosacral region; M51.36 Other intervertebral disc degeneration, lumbar region; M51.37 Other intervertebral disc degeneration, lumbosacral region
CPT/HCPCS: 64493; 64494; 64495; J0702

== ENCOUNTER → 2022-10-05 10:51 | Outpatient (CLI) | payer MEDICARE, OTHER, SELFPAY ==
[2018-09-13 13:38] VITALS: BMI 29.8
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
== END ==
PROVIDERS: PCP Family Medicine; Referring Provider Family Medicine; Visit Provider Family Medicine
DX: E11.9 Type 2 diabetes mellitus without complications (principal); Z79.84 Long term (current) use of oral hypoglycemic drugs; Z71.3 Dietary counseling and surveillance
CPT/HCPCS: G0108

== ENCOUNTER 2022-11-04 08:02 | Outpatient (CLI) | payer MEDICARE, OTHER, SELFPAY ==
[2022-10-18 09:22] VITALS: BMI 29.8
--- NOTE | 2022-11-04 08:03 | DI.RAD.S_ITS ---
PROCEDURE: PAIN SI JOINT INJECTION STEPHAN COMPARISON: None. INDICATIONS: SACROILIAC DISORDER FINDINGS: 6 fluoroscopic images demonstrate bilateral sacroiliac joint injections. IMPRESSION: Fluoroscopic support for bilateral sacroiliac joint injections. Please see separate procedure note for further details. Dictated by: Angel Flaherty M.D. on 11/04/2022 at 10:55 Approved by: Angel Flaherty M.D. on 11/04/2022 at 10:56
[2022-11-04 08:45] VITALS: BP 124/83; PULSE 80; RESP 18; TEMP 36.5; O2SAT 98
[2022-11-04] MEDS: BETAMETHASONE 30 MG/5 ML MDV 12 MG INJ (09:36)
[2022-11-04 09:41] VITALS: BP 154/86; PULSE 63; RESP 15; O2SAT 99
[2022-11-04 09:46] VITALS: BP 146/97; PULSE 60; RESP 14; O2SAT 100
[2022-11-04] MEDS: IOPAMIDOL 15 ML VIAL 3 ML INJ (09:48)
[2022-11-04] MEDS: BUPIVACAINE 0.5% (PF) 10 ML VIAL 2 ML INJ (09:49)
[2022-11-04 09:51] VITALS: BP 147/98; PULSE 72; RESP 12; O2SAT 100
--- NOTE | 2022-11-04 09:57 | PM.PROC.IR.1 ---
Date/Time/Diagnoses Date of procedure: 11/04/22 Time of procedure: 09:57 Pre-procedure diagnosis: Sacroiliac joint pain/DJD Post-procedure diagnosis: same Procedure Notes Procedure: Fluoroscopic guided contrast controlled bilateral sacroiliac joint injection Indications: Tyson is referred by Dr. Scott for treatment of bilateral sacroiliac joint DJD Physician: Jerrell Diamond Total Fluoroscopy time (seconds): 10 Total sedation minutes: 0 Complications: none Procedure in detail & Post-procedure care: Description of procedure Fluoroscopic guided, contrast controlled bilateral sacroiliac joint injection Following review of allergies and review of potential side effects and complications, including, but not necessarily limited to, infection, allergic reaction, local tissue breakdown, temporary as well as permanent nerve injury, paralysis, stroke and possible , the patient indicated that they understood and agreed to proceed. An informed consent was signed by the patient, witnessed by a nurse, and placed in the patient's chart. Additionally, other treatment options including modalities, medications, and physical therapy were reviewed with the patient. After review of previous anaesthesic history and IV conscious sedation the patient was deemed safe to proceed with today?s procedure with IV conscious sedation as ASA class II designation. Safety time-out was performed to confirm patient ID, procedure to be performed and site of procedure. IV sedation was deemed unnecessary and thus not administered by the RN after DO order, titrated to patient comfort during the course of the procedure while the patient remained responsive to all verbal commands In the prone position following sterile prep and drape of the pelvic region, the hyper lucency on in the inferior aspect of the sacroiliac joint was identified fluoroscopically the skin was anesthetized be a 25 gauge 1.5 inch needle with approximately 2cc of 1% lidocaine solution. At this point, a 22 gauge 3 in spinal needle was atraumatically introduced and advanced under fluoroscopic guidance into the inferior aspect of the right sacroiliac joint. Following negative aspiration, approximately 0.3cc of Isovue-300 was injected confirming intra-articular placement without vascular uptake. Radiographic data, including multiple fluoroscopic views of the pelvis, reveals a spinal needle in the sacroiliac joint hyper lucent zone. Subsequent view show flow contrast tear superiorly and inferiorly within the joint capsule without vascular intrathecal uptake. At this point a total of 1cc of 0.5% Marcaine was combined with 1cc of 6mg of betamethasone was injected without incident. Attention was then refocused the left sacroiliac joint where the procedure was replicated. The procedure tolerated the procedure well without signs or symptoms of complications prior to transfer to the recovery area continued monitoring without incident. The patient was then transferred to the recovery area with a bur observed for an appropriate time after the injection. The patient reverted a vas score of 7 prior to the procedure and post-procedure vas of 1. Postop instructions The patient was provided with a pain like to continue to record the patient's response to the target specific procedure prior to the patient's follow-up visit with the referring physician. Additionally, specific post injection care instructions and a contact number to our office were provided if concerns arise regarding the possible complications associated with procedure are suspected.
[2022-11-04 10:00] VITALS: BP 148/68; PULSE 78; RESP 20; O2SAT 98
[2022-11-04 10:05] VITALS: BP 137/68; PULSE 68; RESP 20; O2SAT 98
== END 2022-11-04 10:10 | disposition home or self-care (01) ==
LOC: RAD 08:02
PROVIDERS: PCP Family Medicine; Referring Provider Physical Medicine & Rehabilitation; Visit Provider Physical Medicine & Rehabilitation
DX: M53.3 Sacrococcygeal disorders, not elsewhere classified (principal); M46.1 Sacroiliitis, not elsewhere classified
CPT/HCPCS: 27096; J0702

== ENCOUNTER → 2022-12-07 11:01 | Outpatient (CLI) | payer MEDICARE, OTHER, SELFPAY ==
[2022-10-18 09:22] VITALS: BMI 29.8
--- NOTE | 2022-12-07 | DI.RAD.S_ITS ---
PROCEDURE: XR CHEST 2V INDICATIONS: PRE PROCEDURE TECHNIQUE: 2 views of the chest were acquired. COMPARISON: None. FINDINGS: Surgical changes and devices: Cervical spine fixation hardware.. Lungs and pleura: Lungs are clear. No pleural effusions or pneumothorax. Eventration of the right hemidiaphragm. Mediastinum: Mediastinal contours are normal. Heart size is normal. Bones and chest wall: No suspicious bony abnormalities. Soft tissues appear unremarkable. IMPRESSION: No acute cardiopulmonary disease process. Dictated by: Dominga Cabrera MD, PhD on 12/07/2022 at 13:55 Approved by: Dominga Cabrera MD, PhD on 12/07/2022 at 13:55
== END ==
PROVIDERS: PCP Family Medicine; Referring Provider Family Medicine; Visit Provider Family Medicine
DX: Z01.818 Encounter for other preprocedural examination (principal); I10 Essential (primary) hypertension
CPT/HCPCS: 71046

== ENCOUNTER → 2024-02-03 12:35 | Outpatient (CLI) | payer MEDICARE, OTHER, SELFPAY ==
[2022-10-18 09:22] VITALS: BMI 29.8
--- NOTE | 2024-02-03 12:38 | DI.RAD.S_ITS ---
PROCEDURE: XR LUMBAR SPINE MIN 4V INDICATIONS: LBP with Bilateral Hip pain TECHNIQUE: 5 views of the lumbar spine acquired, including flexion and extension views. COMPARISON: [facility], CR, XR LUMBAR SPINE 2 OR 3 VIEWS, 05/10/2023, 10:05. [facility], CR, XR LUMBAR SPINE 2 OR 3 VIEWS, 01/28/2023, 9:39. [facility], CR, XR LUMBAR SPINE MIN 4V, 09/16/2022, 14:02. [facility], CR, XR LUMBAR SPINE 2 OR 3 VIEWS, 08/09/2023, 9:47. FINDINGS: Bones: Posterior/interbody fusion L4-L5 and L5-S1 with posterior fixation hardware and intervertebral spacers in expected positions. 2 mm spondylolisthesis unchanged at the L4-L5 and L5-S1 levels. 5 mm spondylolisthesis similar prior exam at the L3-L4 level where there is severe disc degeneration. Soft tissues: Overlying bowel gas pattern is normal. No suspicious soft tissue calcifications. Flexion/extension: There is normal range of motion, with preserved normal alignment. IMPRESSION: 1. Stable appearance and alignment status post L4-L5 and L5-L6 posterior/interbody fusion. 2. Multilevel lumbar spine spondylosis similar prior examination with severe disc degeneration L3-L4. Dictated by: Edgard Sparks [facility] Interpreted: Royal Jaramillo MD on 02/03/2024 at 13:18 Transcribed by: HALINA on 02/03/2024 at 13:19 Approved by: Royal Jaramillo M.D. on 02/03/2024 at 15:38
== END ==
PROVIDERS: PCP Family Medicine; Referring Provider Physical Medicine & Rehabilitation; Visit Provider Physical Medicine & Rehabilitation
DX: M47.816 Spondylosis without myelopathy or radiculopathy, lumbar region (principal); M51.36 Other intervertebral disc degeneration, lumbar region; M48.061 Spinal stenosis, lumbar region without neurogenic claudication; M53.3 Sacrococcygeal disorders, not elsewhere classified; Z98.1 Arthrodesis status
CPT/HCPCS: 72110

== ENCOUNTER 2024-03-06 14:21 | Outpatient (CLI) | payer MEDICARE, OTHER, SELFPAY ==
[2022-10-18 09:22] VITALS: BMI 29.8
[2024-03-06] VITALS (9 sets, daily range): BP systolic 131–166; BP diastolic 75–106; PULSE 58–90; RESP 14–20; TEMP 36.4; O2SAT 97–100
--- NOTE | 2024-03-06 15:30 | DI.RAD.S_ITS ---
PROCEDURE: PAIN SI JOINT INJECTION STEPHAN INDICATIONS: BILATERAL SI JOINT INJECTION COMPARISON: [facility], XA, PAIN SI JOINT INJECTION STEPHAN, 11/04/2022, 10:47. FINDINGS: Fluoroscopic spot filming was performed to verify placement of spinal needles at the bilateral sacroiliac joints level(s), as labeled on the films. Appropriate location(s) of the needle tip(s) was confirmed by injection of iodinated contrast. IMPRESSION: Fluoroscopic guidance utilized for a bilateral sacroiliac joint injection. Dictated by: Preet Musa M.D. on 03/06/2024 at 16:57 Approved by: Preet Musa M.D. on 03/06/2024 at 16:57
[2024-03-06] MEDS: iopamidoL 15 ML VIAL 3 ML INJ (16:05)
[2024-03-06] MEDS: BETAMETHASONE 30 MG/5 ML MDV 12 MG INJ (16:06)
[2024-03-06] MEDS: BUPIVACAINE 0.5% (PF) 10 ML VIAL 2 ML INJ (16:06)
--- NOTE | 2024-03-06 16:06 | PC.NURSE ---
Upon connecting the patient to the ECG monitpr it was noted that the patient was in an unspecified arrythmia. Dr. Diamond notified and patient stated that he has no prior cardiac arrythmia diagnosis. patient notified that this nurse will print a couple of rhythm strips for him to take to his PCP and that he should follow up with his PCP soon. Dr. Diamond proceeded with the procedure.
--- NOTE | 2024-03-06 16:13 | P.PCN_ITS ---
Date/Time/Diagnoses Date of procedure: 03/06/24 Time of procedure: 16:13 Pre-procedure diagnosis: Sacroiliac joint pain/DJD Post-procedure diagnosis: same Procedure Notes Procedure: Fluoroscopic guided contrast controlled bilateral sacroiliac joint injection Indications: Tyson is referred by Dr. Scott for treatment of bilateral sacroiliac joint DJD Physician: Jerrell Diamond Total Fluoroscopy time (seconds): 10 Total sedation minutes: 12 Complications: none Procedure in detail & Post-procedure care: Description of procedure Fluoroscopic guided, contrast controlled bilateral sacroiliac joint injection Following review of allergies and review of potential side effects and complications, including, but not necessarily limited to, infection, allergic reaction, local tissue breakdown, temporary as well as permanent nerve injury, paralysis, stroke and possible , the patient indicated that they understood and agreed to proceed. An informed consent was signed by the patient, witnessed by a nurse, and placed in the patient's chart. Additionally, other treatment options including modalities, medications, and physical therapy were reviewed with the patient. After review of previous anaesthesic history and IV conscious sedation the patient was deemed safe to proceed with today?s procedure with IV conscious sedation as ASA class II designation. Safety time-out was performed to confirm patient ID, procedure to be performed and site of procedure. IV sedation was accomplished with a combination of 2mg Versed were administered by the RN after DO order, titrated to patient comfort during the course of the procedure while the patient remained responsive to all verbal commands In the prone position following sterile prep and drape of the pelvic region, the hyper lucency on in the inferior aspect of the sacroiliac joint was identified fluoroscopically the skin was anesthetized be a 25 gauge 1.5 inch needle with approximately 2cc of 1% lidocaine solution. At this point, a 22 gauge 3 in s noemi needle was atraumatically introduced and advanced under fluoroscopic guidance into the inferior aspect of the right sacroiliac joint. Following negative aspiration, approximately 0.3cc of Isovue-300 was injected confirming intra-articular placement without vascular uptake. Radiographic data, including multiple fluoroscopic views of the pelvis, reveals a spinal needle in the sacroiliac joint hyper lucent zone. Subsequent view show flow contrast tear superiorly and inferiorly within the joint capsule without vascular intrathecal uptake. At this point a total of 1cc of 0.5% Marcaine was combined with 1cc of 6mg of betamethasone was injected without incident. Attention was then refocused the left sacroiliac joint where the procedure was replicated. The procedure tolerated the procedure well without signs or symptoms of complications prior to transfer to the recovery area continued monitoring without incident. The patient was then transferred to the recovery area with a bur observed for an appropriate time after the injection. The patient reverted a vas score of 7 prior to the procedure and post-procedure vas of 1. Postop instructions The patient was provided with a pain like to continue to record the patient's response to the target specific procedure prior to the patient's follow-up visit with the referring physician. Additionally, specific post injection care instructions and a contact number to our office were provided if concerns arise regarding the possible complications associated with procedure are suspected.
--- NOTE | 2024-03-06 16:35 | PC.NURSE ---
Patient returned from injection in NAD. MEGHAN Gillespie in procedure room reports irregular heart rhythm during procedure. Patient denies history of any cardiac issues. Currently without complaint, denies CP/SOB/Palpitations. BP stable at 148/83, baseline pre-procedure vitals. Monitor showing SB 50's with sudden and intermittent increases up to 110, irregular/PAC's. Patient remains asymptomatic during these episodes. Dr. Diamond aware. order caller PCP Dr. Leal phoned and updated on patient status as well as current concerns. Plan to see patient in office tomorrow. Appointment arranged for 3 pm tomorrow. Patient verbalized understanding. Ok to proceed with discharge per protocol.
== END 2024-03-06 16:45 | disposition home or self-care (01) ==
LOC: RAD 14:22
PROVIDERS: PCP Family Medicine; Referring Provider Physical Medicine & Rehabilitation; Visit Provider Physical Medicine & Rehabilitation
DX: M47.816 Spondylosis without myelopathy or radiculopathy, lumbar region (principal); M53.3 Sacrococcygeal disorders, not elsewhere classified; M48.061 Spinal stenosis, lumbar region without neurogenic claudication
CPT/HCPCS: 27096; 99152; J0702

== ENCOUNTER → 2024-07-13 13:24 | Outpatient (CLI) | payer MEDICARE, OTHER, SELFPAY ==
[2024-05-21 15:42] VITALS: BMI 29.8
--- NOTE | 2024-07-13 13:25 | DI.MRI.S_ITS ---
PROCEDURE: MR LUMBAR SPINE WO CON INDICATIONS: LOW BACK PAIN,PRIOR SURGERY,NEW SYMPTOMS TECHNIQUE: Noncontrast sagittal T1 spin echo and T2 fast echo, sagittal STIR, and T2 fast spin echo through the lumbar spine. In cases with scoliosis, additional coronal T2 fast spin echo may be performed. COMPARISON: [facility], CR, XR LUMBAR SPINE 2 OR 3 VIEWS, 08/09/2023, 9:47. [facility], MR, MR LUMBAR SPINE WO CON, 07/23/2022, 13:46. FINDINGS: Image quality: Excellent. Alignment and Curvature: Patient is status post prior laminectomy and posterior fusion at L4 through S1 levels with susceptibility artifacts. Stable grade 1 retrolisthesis of L2 on L3 and grade 1 anterolisthesis of L4 on L5 unchanged from prior radiograph. Bone Marrow: No gross marrow edema. No acute vertebral body compression fractures. Spinal Cord: Conus medullaris terminates at the L1-2 level. Visualized cord demonstrates normal signal and size. Paraspinous Soft Tissues: No paravertebral masses. T12-L1: Normal appearance. L1-L2: Disc desiccation signal. No significant disc bulge, canal stenosis or neural foraminal narrowing. L2-L3: There is disc desiccation. Broad-based disc bulge and bilateral facet arthrosis with hypertrophy of ligamentum flavum. There is mild central canal stenosis and moderate to severe bilateral neural foraminal narrowing worse on the left side. Compression of bilateral L2 nerve roots are likely present. L3-L4: Loss of disc height and disc desiccation. There is right-sided laminectomy. Broad-based disc bulge and bilateral facet arthrosis causing [id number] central canal stenosis and moderate to severe bilateral neural foraminal narrowing. Bulging disc likely contacting bilateral L3 nerve roots. L4-L5: Postsurgical changes are noted from right laminectomy. Bilateral facet arthrosis is seen. No significant central canal stenosis. Moderate right worse than left bilateral neural foraminal narrowing is seen with likely compression of bilateral L4 nerve roots. L5-S1: Disc desiccation. Broad-based disc bulge and bilateral facet arthrosis with mild central canal stenosis and moderate to severe left-sided neural foraminal narrowing as well as moderate right-sided neural foraminal narrowing is seen. Bulging disc likely contacting bilateral L5 nerve roots. IMPRESSION: 1. Prior posterior fusion and laminectomy at L4 through S1 levels. No gross marrow edema. No acute compression fracture. Stable grade 1 anterolisthesis of L4 on L5. Stable grade 1 retrolisthesis of L2 on L3. 2. Degenerative disc disease and bilateral facet arthrosis throughout lumbar spine causing various degrees of central canal stenosis and bilateral neural foraminal narrowing most notably at L3-4 level as described above. Dictated by: Colby Smith M.D. on 07/13/2024 at 19:45 Approved by: Colby Smith M.D. on 07/13/2024 at 20:00
== END ==
LOC: MRI 13:24
PROVIDERS: PCP Family Medicine; Referring Provider Orthopaedic Surgery; Visit Provider Orthopaedic Surgery
DX: M43.16 Spondylolisthesis, lumbar region (principal); M51.16 Intervertebral disc disorders with radiculopathy, lumbar region; M51.17 Intervertebral disc disorders with radiculopathy, lumbosacral region; M47.26 Other spondylosis with radiculopathy, lumbar region; M47.27 Other spondylosis with radiculopathy, lumbosacral region; M48.061 Spinal stenosis, lumbar region without neurogenic claudication; M48.07 Spinal stenosis, lumbosacral region; Z98.1 Arthrodesis status
CPT/HCPCS: 72148

== ENCOUNTER → 2024-09-06 10:32 | Outpatient (CLI) | payer MEDICARE, OTHER, SELFPAY ==
[2024-05-21 15:42] VITALS: BMI 29.8
--- NOTE | 2024-09-06 | DI.CT.S_ITS ---
PROCEDURE: CT LUMBAR SPINE WO CON INDICATIONS: Spinal stenosis, lumbar region with neurogenic claudication TECHNIQUE: Noncontrast 0.8 mm thick sections acquired from the T12 level to the sacrum. Sagittal and coronal reformats were constructed. For radiation dose reduction, the following was used: automated exposure control. COMPARISON: [facility], CR, XR LUMBAR SPINE MIN 4V, 02/03/2024, 12:40. [facility], MR, MR LUMBAR SPINE WO CON, 07/23/2022, 13:46. [facility], MR, MR LUMBAR SPINE WO CON, 07/13/2024, 13:48. FINDINGS: Image quality: There is artifact associated with the metallic hardware. Artifact from the metallic hardware is reduced by metal reconstruction algorithm. Bones: No acute vertebral body compression fractures. No suspicious lytic or blastic bony lesions. No pars defects. Postoperative changes are seen, with bilateral pedicle screws at the L4, L5, and S1 levels. The screws appear well placed. Vertical fixation rods are seen. Disc spacers are seen at the L4-L5 and the L5-S1 levels. No findings of hardware failure or hardware loosening can be seen. There has been removal of portions of the posterior elements. There is minimal retrolisthesis seen at the L1-L2 and L2-L3 levels. Minimal anterolisthesis is seen at L4-L5. T12-L1: Normal. L1-L2: The disc height is well preserved. Mild generalized disc bulge is seen. There is at least moderate left-sided and moderate right-sided neural foraminal narrowing. No central canal narrowing is seen. L2-L3: The disc height is well preserved. Moderate generalized disc bulge is seen. Mild to moderate facet hypertrophy can be seen. There is moderate right-sided and at least moderate left-sided neural foraminal narrowing. Mild to moderate central canal narrowing is seen. L3-L4: At least moderate loss of disc height is seen. Endplate irregularity and sclerosis can be seen. Vacuum disc phenomenon is seen at this level. Moderate to prominent disc bulge is seen. There is a central disc osteophyte protrusion. Moderate bilateral neural foraminal narrowing is seen. At least moderate central is seen at this level. L4-L5: There is [id number] left-sided and no significant right-sided neural foraminal narrowing. No significant central canal narrowing is seen. L5-S1: Moderate loss of disc height is seen. Loss of disc signal is seen. Moderate facet joint hypertrophy is seen. There is moderate left-sided and minimal right-sided neural foraminal narrowing. No central canal narrowing is seen. Soft tissues: No retroperitoneal masses or hematomas. Visualized aorta is normal in caliber. IMPRESSION: Imaging performed for intraoperative localization. Lumbosacral fixation hardware seen, without deanna complication. Multiple levels of underlying degenerative change can be seen, which are overall worst at the L3-L4 level. Dictated by: Yusuf Shukla M.D. on 09/06/2024 at 16:38 Approved by: Yusuf Shukla M.D. on 09/06/2024 at 16:43
== END ==
PROVIDERS: PCP Family Medicine; Referring Provider Orthopaedic Surgery; Visit Provider Orthopaedic Surgery
DX: M48.062 Spinal stenosis, lumbar region with neurogenic claudication (principal); M47.817 Spondylosis without myelopathy or radiculopathy, lumbosacral region; M47.816 Spondylosis without myelopathy or radiculopathy, lumbar region; M43.16 Spondylolisthesis, lumbar region; S39.012D Strain of muscle, fascia and tendon of lower back, subsequent encounter; Z98.1 Arthrodesis status
CPT/HCPCS: 72131

== ENCOUNTER → 2025-01-09 11:02 | Outpatient (CLI) | payer MEDICARE, OTHER, SELFPAY ==
[2024-05-21 15:42] VITALS: BMI 29.8
--- NOTE | 2025-01-09 11:04 | DI.RAD.S_ITS ---
PROCEDURE: FL JOINT INJECTION LARGE RT INDICATIONS: OSTEOARTHRITIS GLENOHUMERAL JOINT RT COMPARISON: None. TECHNIQUE: The indications, alternatives, benefits, risks, and complications of the procedure were explained to the patient. Written informed consent was obtained and placed in the chart. The patient was placed in an appropriate position on the fluoroscopy table, and a site was chosen for percutaneous access under fluoroscopic guidance. The site was prepped and draped in a sterile fashion. Local anesthetic was administered using a 1% lidocaine solution. A hypodermic or spinal needle was then used to access the symptomatic joint. Intra-articular location of the needle tip was confirmed by injecting a small amount of gadolinium, followed by steroid administration. The needle was then withdrawn, and a bandage applied to the puncture site. FINDINGS: Joint injected: Right shoulder Medications injected: 5 mL of 40 mg/mL Kenalog and 0.5% Ropivacaine mixture. Patient's pain before injection: 5 out of 10. Patient's pain after injection: 0 out of 10. Complications: None. IMPRESSION: Successful fluoroscopically guided administration of steroid and anaesthetic solution into the right shoulder joint. Dictated by: Nathanael Andrew M.D. on 01/09/2025 at 14:05 Approved by: Nathanael Andrew M.D. on 01/09/2025 at 14:06
[2025-01-09] MEDS: LIDOCAINE 1% 20 ML INJ (13:35)
[2025-01-09] MEDS: ROPIVACAINE 0.5% PF 5 MG/ML 20ML VIAL 20 ML INJ (13:35)
[2025-01-09] MEDS: TRIAMCINOLONE 40 MG/ML VIAL INTRA-ARTI (13:36)
== END ==
PROVIDERS: PCP Family Medicine; Referring Provider Orthopaedic Surgery; Visit Provider Orthopaedic Surgery
DX: M19.011 Primary osteoarthritis, right shoulder (principal)
CPT/HCPCS: 20610; 77002; A9579

== ENCOUNTER → 2025-04-29 11:05 | Outpatient (CLI) | payer MEDICARE, SELFPAY ==
[2024-05-21 15:42] VITALS: BMI 29.8
--- NOTE | 2025-04-29 11:09 | DI.RAD.S_ITS ---
PROCEDURE: FL JOINT INJECTION LARGE RT INDICATIONS: ACUTE PAIN OF RIGHT SHOULDER COMPARISON: [facility], , [place] JOINT INJECTION LARGE RT, 01/09/2025, 10:36. TECHNIQUE: The indications, alternatives, benefits, risks, and complications of the procedure were explained to the patient. Written informed consent was obtained and placed in the chart. The patient was placed in an appropriate position on the fluoroscopy table, and a site was chosen for percutaneous access under fluoroscopic guidance. The site was prepped and draped in a sterile fashion. Local anesthetic was administered using a 1% lidocaine solution. A hypodermic or spinal needle was then used to access the symptomatic joint. Intra-articular location of the needle tip was confirmed by injecting a small amount of lidocaine, followed by steroid administration. The needle was then withdrawn, and a bandage applied to the puncture site. Contrast not utilized due to prior allergy. FINDINGS: Joint injected: Right glenohumeral joint Medications injected: 4 mL of 40 mg/mL Kenalog and 0.5% Ropivacaine mixture. Patient's pain before injection: 7 out of 10. Patient's pain after injection: 4 out of 10. Complications: None. IMPRESSION: Successful fluoroscopically guided administration of steroid and anaesthetic solution into the right shoulder joint. Dictated by: Chau Szymanski M.D. on 04/29/2025 at 16:15 Approved by: Chau Szymanski M.D. on 04/29/2025 at 16:17
== END ==
PROVIDERS: PCP Family Medicine; Visit Provider Radiology Diagnostic Radiology
DX: M75.41 Impingement syndrome of right shoulder (principal); M25.511 Pain in right shoulder
CPT/HCPCS: 20610; 77002